=== PATIENT | female | born 1980 | race Caucasian/White ===

== ENCOUNTER 2017-03-17 08:52 | Emergency (ER) | payer BC, SELFPAY | END 2017-03-17 09:40 | disposition home or self-care (01) | PROVIDERS: Emergency Provider Nurse Practitioner; Visit Provider Nurse Practitioner | DX: J06.9 Acute upper respiratory infection, unspecified (principal) | CPT/HCPCS: 87804; 87880; 99201 ==

== ENCOUNTER 2020-05-24 09:56 | Emergency (ER) | payer BC, SELFPAY ==
[2020-05-24 10:14] VITALS: BP 120/82; PULSE 81; RESP 18; TEMP 36.6; O2SAT 99; BMI 31.6
--- NOTE | 2020-05-24 10:16 | HMH.EDUTC ---
[facility] Disposition Clinical Impression: Viral syndrome, Exposure to COVID-19 virus Disposition: Home, Self-Care Condition on Discharge: Good Instructions: DI for COVID-19 (Suspected or Confirmed ), Preventing the Spread of Coronavirus Discharge Instructions Additional Instructions: Drink plenty of fluids. Take tylenol for pain or fever. Return if you begin to have difficulty breathing. Follow up with your regular doctor. GO TO THE ER FOR ANY WORSENING SYMPTOMS Prescriptions: Ondansetron [Zofran 4mg ODT] 4 mg PO Q8HP PRN #12 tab.rapdis PRN Reason: Nausea Transmission Status: Received by [facility] Benzonatate [Tessalon Perle 100mg Cap] 100 mg PO TIDP PRN #30 cap PRN Reason: Cough Transmission Status: Received by [facility] Azithromycin [Z-Jorge 250mg Tab*] 250 mg PO UD DOSE PK #6 tab Transmission Status: Received by [facility] Referrals: Marina Gan [Primary Care Provider] - Forms: Work/School Release Time of Disposition: 10:25 Medical Decision Making - Medical Records Medical records reviewed: No: I reviewed the patient's medical records. - Tad Inquiry Pt receiving controlled substance: No Vital Signs: 05/24/20 10:14 05/24/20 10:26 Temperature 97.8 F 98 F Temperature Source Tympanic Pulse Rate 87 Pulse Rate [Right] 81 Respiratory Rate 18 16 Blood Pressure 122/84 Blood Pressure [Right Arm] 120/82 Blood Pressure Mean [Right Arm] 94 Blood Pressure Source [Right Arm] Automatic Cuff Blood Pressure Position [Right Arm] Sitting 02 Sat by Pulse Oximetry 99 Oxygen Delivery Method Room Air [facility] HPI - General Stated complaint: covid test Time Seen by Provider: 05/24/20 10:16 - History of Present Illness Provider Complaint: She is here to have a covid test done. Her son has covid. - Related Data Previous Rx's Medication Instructions Recorded Azithromycin [Z-Jorge 250mg Tab*] 250 mg PO UD DOSE PK #6 tab 05/24/20 Benzonatate [Tessalon Perle 100mg 100 mg PO TIDP PRN #30 cap 05/24/20 Cap] Ondansetron [Zofran 4mg ODT] 4 mg PO Q8HP PRN #12 tab.rapdis 05/24/20 Allergies Allergy/AdvReac Type Severity Reaction Status Date / Time Penicillins [PENICILLINS] Allergy Unknown Verified 05/24/20 10:00 sulfamethoxazole Allergy Unknown Verified 05/24/20 10:00 [From BACTRIM] trimethoprim [From BACTRIM] Allergy Unknown Verified 05/24/20 10:00 NOVACAINE Allergy Severe S-SWELLS-OR Uncoded 03/06/17 14:35 AL/THROAT From BACTRIM Allergy Intermediate I-ITCHING Uncoded 03/06/17 14:35 Penicillin Allergy Unknown Uncoded 03/06/17 14:35 [facility] History - Hepatitis A Screen Attestation statement:: This patient has been screened for Hepatitis A risk factors. I have reviewed the patient's past medical history: Yes ROS Obtained: Yes All systems reviewed & no additional complaints - Constitutional Constitutional: Reports system reviewed and no additional complaints, except as docu - Eyes Eyes: Reports system reviewed and no additional complaints, except as docu - ENT Ears, Nose, Mouth, and Throat: Reports system reviewed and no additional complaints, except as docu - Cardiovascular Cardiovascular: Reports system reviewed and no additional complaints, except as docu - Respiratory Respiratory: Reports system reviewed and no additional complaints, except as docu - Gastrointestinal Gastrointestingal: Reports: system reviewed and no additional complaints, except as docu Physical Exam - General General appearance: alert, in no apparent distress - Head Head exam: atraumatic, normocephalic, normal inspection - Eye Eye exam: Present: normal appearance, PERRL, EOMI - ENT ENT exam: Present: normal exam, normal oropharynx, mucous membranes moist, TM's normal bilaterally, normal external ear exam - Neck Neck exam: Present: normal inspection, full ROM, trachea midline. Absent: meningismus, lymphadenopathy - Chest
[2020-05-24 10:26] VITALS: BP 122/84; PULSE 87; RESP 16; TEMP 36.6
--- NOTE | 2020-05-24 13:45 | PC.NURSE ---
PT NOTIFIED OF POSITIVE COVID TEST RESULTS
== END 2020-05-24 10:29 | disposition home or self-care (01) ==
PROVIDERS: Emergency Provider Nurse Practitioner Family; PCP Nurse Practitioner Family
DX: U07.1 COVID-19 (principal); Z88.0 Allergy status to penicillin
CPT/HCPCS: 99202; G0463; U0003

== ENCOUNTER 2021-07-27 12:39 | Emergency (ER) | payer BC, SELFPAY ==
[2021-07-27 12:52] VITALS: BP 117/83; PULSE 67; RESP 18; TEMP 36.7; O2SAT 98; BMI 32.5
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
--- NOTE | 2021-07-27 13:12 | PC.NURSE ---
pt in radiology
[2021-07-27 14:34] VITALS: BP 123/73; PULSE 56; RESP 20; TEMP 36.8; O2SAT 100
== END 2021-07-27 14:35 | disposition home or self-care (01) ==
PROVIDERS: Emergency Provider Emergency Medicine; PCP Nurse Practitioner Family
DX: S39.012A Strain of muscle, fascia and tendon of lower back, initial encounter (principal); S13.4XXA Sprain of ligaments of cervical spine, initial encounter; V43.02XA Car driver injured in collision with other type car in nontraffic accident, initial encounter; Y92.414 Local residential or business street as the place of occurrence of the external cause
CPT/HCPCS: 70450; 72125; 72128; 72131; 99284

== ENCOUNTER 2022-02-05 08:31 | Emergency (ER) | payer BC, SELFPAY ==
[2022-02-05 08:43] VITALS: BP 114/77; PULSE 66; RESP 16; TEMP 36.8; O2SAT 98; BMI 32.1
--- NOTE | 2022-02-05 08:48 | EXP.UTC ---
Discharge Plan Disposition Patient Disposition: Home, Self-Care Condition: Good Prescriptions Prescriptions: New triamcinolone acetonide 0.025 % cream 1 applic topical DAILY PRN (Reason: itching) Qty: 15 2RF methylprednisolone 4 mg Tablets,Dose Pack 4 mg PO DIRECTED Qty: 21 0RF No Action azithromycin 250 MG tablet 250 mg PO UD DOSE PK Qty: 6 0RF Rx Instructions: Take two (2) tablets today, then one (1) tablet days #2 thru #5 benzonatate 100 MG capsule 100 mg PO TIDP PRN (Reason: Cough) Qty: 30 0RF ondansetron 4 MG tablet,disintegrating 4 mg PO Q8HP PRN (Reason: Nausea) Qty: 12 0RF methocarbamol 500 MG tablet 1,000 mg PO TID 10 Days Qty: 60 0RF ibuprofen 800 MG tablet 800 mg PO TIDP PRN (Reason: Moderate Pain) Qty: 20 0RF Referrals Follow up/Referrals: Marina Gan [Primary Care Provider] - See instructions Activity Restrictions/Add. Instructions Additional Instructions/Restrictions: Try to identify and avoid contact with the offending substance. Don't start the oral steroids until tomorrow. Don't put the topical steroids (triamcinolone) on your face or your groin. Follow up with your regular doctor. GO TO THE ER FOR ANY WORSENING SYMPTOMS OR CONCERNS Clinical Impressions Clinical Impression: Contact dermatitis Instructions Patient Instructions: DI for Contact Dermatitis, Triamcinolone Topical, Methylprednisolone Injection Discharge ED Provider: Onel Maldonado [facility] General Stated complaint: rash on body Mode of Arrival: Ambulatory Source of Information: Patient Limitations: No Limitations Time Seen by Provider: 02/05/22 08:48 Description of Symptoms (Recalled from Triage Doc. by RN): pt comes in with c/o rash on legs, arms, back, torso. symptoms began 3-4 days ago. pt states she has not recently changed any detergents or been any place different. HEENT Symptoms (Recalled from RN notes): No Resp Symptoms (Recalled from RN notes): No Skin Symptoms (Recalled from RN notes): Yes MS Symptoms (Recalled from RN notes): No Functional Status (Recalled from RN notes): n/a History of Present Illness Provider Complaint: She states that for the past 4 days she has had a rash on her body that is very itchy. She denies any known exposure to any allergens. Related Data Previous Rx's Medication Instructions Recorded azithromycin 250 mg tablet 250 mg PO UD DOSE PK #6 tabs 05/24/20 benzonatate 100 mg capsule 100 mg PO TIDP PRN Cough #30 caps 05/24/20 ondansetron 4 mg disintegrating 4 mg PO Q8HP PRN Nausea ##12 05/24/20 tablet ibuprofen 800 mg tablet 800 mg PO TIDP PRN Moderate Pain 07/27/21 #20 tabs methocarbamol 500 mg tablet 1,000 mg PO TID 10 days #60 tabs 07/27/21 methylprednisolone 4 mg tablets in 4 mg PO DIRECTED #21 tabs 02/05/22 a dose pack triamcinolone acetonide 0.025 % 1 applic topical DAILY PRN itching 02/05/22 topical cream #15 grams Allergies Allergy/AdvReac Type Severity Reaction Status Date / Time Penicillins [PENICILLINS] Allergy Unknown Verified 02/05/22 08:47 sulfamethoxazole Allergy Unknown Verified 02/05/22 08:47 [From BACTRIM] trimethoprim [From BACTRIM] Allergy Unknown Verified 02/05/22 08:47 NOVACAINE Allergy Severe S-SWELLS-OR Uncoded 03/06/17 14:35 AL/THROAT From BACTRIM Allergy Intermediate I-ITCHING Uncoded 03/06/17 14:35 Penicillin Allergy Unknown Uncoded 03/06/17 14:35 Worker's Comp Is this a Worker's Comp case?: No PFSH PFSH Social History Smoking Status: Never smoker alcohol intake: never current occupational status: employed Travel in the last 8 weeks: None ROS Obtained: Yes All systems reviewed & no additional complaints except as documented Constitutional Constitutional: Denies chills and Denies fever(s) Eyes Eyes: Denies eye discharge ENT Ears, Nose, Mouth, and Throat: Denies dizziness, Denies otalgia and Denies sore thr
[2022-02-05 09:57] VITALS: BP 114/77; PULSE 66; RESP 16; TEMP 36.8
== END 2022-02-05 10:01 | disposition home or self-care (01) ==
PROVIDERS: Emergency Provider Nurse Practitioner Family; PCP Nurse Practitioner Family
DX: L25.9 Unspecified contact dermatitis, unspecified cause (principal); R11.0 Nausea; R05.9 Cough, unspecified; Z79.1 Long term (current) use of non-steroidal anti-inflammatories (NSAID); Z79.52 Long term (current) use of systemic steroids; Z79.899 Other long term (current) drug therapy; Z88.0 Allergy status to penicillin; Z88.2 Allergy status to sulfonamides; Z88.4 Allergy status to anesthetic agent; Z88.8 Allergy status to other drugs, medicaments and biological substances
CPT/HCPCS: 96372; 99213; G0463

== ENCOUNTER 2022-08-15 09:36 | Emergency (ER) | payer BC, SELFPAY ==
[2022-08-15 09:37] VITALS: BP 143/71; PULSE 69; RESP 16; TEMP 36.7; O2SAT 100; BMI 32.5
--- NOTE | 2022-08-15 09:58 | EXP.UTC ---
Discharge Plan Disposition Patient Disposition: Home, Self-Care Condition: Good Prescriptions Prescriptions: New methylprednisolone 4 mg Tablets,Dose Pack 4 mg PO DIRECTED Qty: 21 0RF No Action azithromycin 250 MG tablet 250 mg PO UD DOSE PK Qty: 6 0RF Rx Instructions: Take two (2) tablets today, then one (1) tablet days #2 thru #5 benzonatate 100 MG capsule 100 mg PO TIDP PRN (Reason: Cough) Qty: 30 0RF ondansetron 4 MG tablet,disintegrating 4 mg PO Q8HP PRN (Reason: Nausea) Qty: 12 0RF triamcinolone acetonide 0.025 % cream 1 applic topical DAILY PRN (Reason: itching) Qty: 15 2RF methylprednisolone 4 mg Tablets,Dose Pack 4 mg PO DIRECTED Qty: 21 0RF methocarbamol 500 MG tablet 1,000 mg PO TID 10 Days Qty: 60 0RF ibuprofen 800 MG tablet 800 mg PO TIDP PRN (Reason: Moderate Pain) Qty: 20 0RF Referrals Follow up/Referrals: Marina Gan [Primary Care Provider] - See instructions Activity Restrictions/Add. Instructions Additional Instructions/Restrictions: Take the medications as directed. Follow up with your regular doctor. Follow up with your wad impregnator as discussed. GO TO THE ER FOR ANY WORSENING SYMPTOMS Don't start the oral steroids until tomorrow, since you had the shot here today. Clinical Impressions Clinical Impression: Allergic reaction Instructions Patient Instructions: DI for General Allergic Reactions Discharge ED Provider: Onel Maldonado [facility] HPI General Stated complaint: Possible reaction, sore throat, cough, itchy face Mode of Arrival: Ambulatory Source of Information: Patient Limitations: No Limitations Time Seen by Provider: 08/15/22 09:58 Description of Symptoms (Recalled from Triage Doc. by RN): pt presents to [facility] c/o lip swelling. pt states the s/s started at 2230 previous date but that she noticed around 0430 this morning. pt states at that time she took Benadryl. pt states she now has sore throat and cough that wasn't present at started. HEENT Symptoms (Recalled from RN notes): Yes Resp Symptoms (Recalled from RN notes): No Skin Symptoms (Recalled from RN notes): No MS Symptoms (Recalled from RN notes): No Functional Status (Recalled from RN notes): na History of Present Illness Provider Complaint: She states that for the past 1 day she has had swelling of her lips. She had these same symptoms about 3 weeks ago. She denies swelling of inside mouth or throat, but she is having throat discomfort and she is afraid her throat will swell. She denies any shortness of breath. Related Data Previous Rx's Medication Instructions Recorded azithromycin 250 mg tablet 250 mg PO UD DOSE PK #6 tabs 05/24/20 benzonatate 100 mg capsule 100 mg PO TIDP PRN Cough #30 caps 05/24/20 ondansetron 4 mg disintegrating 4 mg PO Q8HP PRN Nausea ##12 05/24/20 tablet ibuprofen 800 mg tablet 800 mg PO TIDP PRN Moderate Pain 07/27/21 #20 tabs methocarbamol 500 mg tablet 1,000 mg PO TID 10 days #60 tabs 07/27/21 methylprednisolone 4 mg tablets in 4 mg PO DIRECTED #21 tabs 02/05/22 a dose pack triamcinolone acetonide 0.025 % 1 applic topical DAILY PRN itching 02/05/22 topical cream #15 grams methylprednisolone 4 mg tablets in 4 mg PO DIRECTED #21 tabs 08/15/22 a dose pack Allergies Allergy/AdvReac Type Severity Reaction Status Date / Time Penicillins [PENICILLINS] Allergy Unknown Verified 02/05/22 08:47 sulfamethoxazole Allergy Unknown Verified 02/05/22 08:47 [From BACTRIM] trimethoprim [From BACTRIM] Allergy Unknown Verified 02/05/22 08:47 NOVACAINE Allergy Severe S-SWELLS-OR Uncoded 03/06/17 14:35 AL/THROAT From BACTRIM Allergy Intermediate I-ITCHING Uncoded 03/06/17 14:35 Penicillin Allergy Unknown Uncoded 03/06/17 14:35 Worker's Comp Is this a Worker's Comp case?: No Is this an H Worker's Comp?: No Is this a [place] Worker's Comp?: No [facility] Disclaimer: The information contained in this secti
[2022-08-15 10:16] VITALS: BP 143/71; PULSE 69; RESP 16; TEMP 36.7; O2SAT 100
== END 2022-08-15 10:18 | disposition home or self-care (01) ==
PROVIDERS: Emergency Provider Nurse Practitioner Family; PCP Nurse Practitioner Family
DX: T78.40XA Allergy, unspecified, initial encounter (principal); R22.0 Localized swelling, mass and lump, head
CPT/HCPCS: 96372; 99212; 99214; G0463

== ENCOUNTER 2023-03-31 10:04 | Emergency (ER) | payer BC, SELFPAY ==
[2023-03-31 10:15] VITALS: BP 120/81; PULSE 69; RESP 18; TEMP 36.8; O2SAT 98; BMI 31.6
--- NOTE | 2023-03-31 10:37 | ED_ITS ---
Discharge Plan Disposition Patient Disposition: Home, Self-Care Condition: Good Prescriptions Prescriptions: New promethazine-DM 6.25-15 mg/5 mL syrup 5 ml PO Q6H PRN (Reason: cough) Qty: 118 0RF No Action triamcinolone acetonide 0.025 % cream 1 applic topical DAILY PRN (Reason: itching) Qty: 15 2RF levothyroxine 100 mcg tablet 100 mcg PO DAILY Patient Comments: TAKE 1 TABLET BY MOUTH ONCE DAILY IN THE MORNING spironolactone 50 mg tablet 50 mg PO BID Patient Comments: TAKE 1 TABLET BY MOUTH TWICE DAILY Referrals Follow up/Referrals: Marina Gan [Primary Care Provider] - See instructions Activity Restrictions/Add. Instructions Additional Instructions/Restrictions: Take Blood pressure medication daily and check BP while taking cough medication. Clinical Impressions Clinical Impression: Acute upper respiratory infection Instructions Patient Instructions: DI for Viral Upper Respiratory Infection -- Adult Discharge ED Provider: Ranjana Brush [facility] General Stated complaint: presistant cough Mode of Arrival: Ambulatory Source of Information: Patient Limitations: No Limitations Time Seen by Provider: 03/31/23 10:37 Description of Symptoms (Recalled from Triage Doc. by RN): Pt's symptoms is coughing. HEENT Symptoms (Recalled from RN notes): Yes Resp Symptoms (Recalled from RN notes): No Skin Symptoms (Recalled from RN notes): No MS Symptoms (Recalled from RN notes): No Functional Status (Recalled from RN notes): n/a History of Present Illness Provider Complaint: Pt relates that she has been coughing and had some sinus congestion/drainage for the past 3 days. She states that she does not wish to be swabbed unless it will change her treatment plan as she plans to stay at home the next few days. She relates that she had a low grade temp of 99 last night and has not taken anything for her symptoms. Related Data Home Medications Medication Instructions Recorded Confirmed levothyroxine 100 mcg tablet 100 mcg PO DAILY 03/31/23 03/31/23 spironolactone 50 mg tablet 50 mg PO BID 03/31/23 03/31/23 Previous Rx's Medication Instructions Recorded triamcinolone acetonide 0.025 % 1 applic topical DAILY PRN itching 02/05/22 topical cream #15 grams promethazine-DM 6.25 mg-15 mg/5 mL 5 ml PO Q6H PRN cough #118 mL 03/31/23 oral syrup Allergies Allergy/AdvReac Type Severity Reaction Status Date / Time Penicillins [PENICILLINS] Allergy Unknown Verified 02/05/22 08:47 sulfamethoxazole Allergy Unknown Verified 02/05/22 08:47 [From BACTRIM] trimethoprim [From BACTRIM] Allergy Unknown Verified 02/05/22 08:47 NOVACAINE Allergy Severe S-SWELLS-OR Uncoded 03/06/17 14:35 AL/THROAT From BACTRIM Allergy Intermediate I-ITCHING Uncoded 03/06/17 14:35 Penicillin Allergy Unknown Uncoded 03/06/17 14:35 Worker's Comp Is this a Worker's Comp case?: No [facility] Disclaimer: The information contained in this section may have been updated after the patient was seen, as this information can be updated by other users. Social History Smoking Status: Never smoker alcohol intake: never current occupational status: employed Travel in the last 8 weeks: None ROS Obtained: Yes All systems reviewed & no additional complaints except as documented Constitutional Constitutional: Reports system reviewed and no additional complaints, except as documented and Reports malaise Eyes Eyes: Reports system reviewed and no additional complaints, except as documented ENT Ears, Nose, Mouth, and Throat: Reports system reviewed and no additional complaints, except as documented, Reports nasal congestion, Reports nasal discharge and Reports sinus pressure Cardiovascular Cardiovascular: Reports system reviewed and no additional complaints, except as documented Respiratory Respiratory: Reports system reviewed and no additional complaints, except as documented and Reports non-productive cough Gastrointestinal Gastrointestingal: Reports system reviewed and no additional complaints, except as documented Genitourinary Female Genitourinary: Reports system reviewed and no additional complaints, except as documented Musculoskeletal Musculoskeletal: Reports system reviewed and no additional complaints, except as documented Integumentary/Breasts Skin/Breast: Reports system reviewed and no additional complaints, except as documented Neurologic Neurologic: Reports system reviewed and no additional complaints, except as documented Endocrine Endocrine: Reports system reviewed and no additional complaints, except as documented Hematologic/Lymphatic Henatologic/Lymphatic: Reports system reviewed and no additional complaints, except as documented Allergic/Immunologic Allergic/Immunologic: Reports system reviewed and no additional complaints, except as documented Physical Exam General General appearance: alert Comment: ill appearing Head Head exam: atraumatic and normocephalic Eye Eye exam: Present normal appearance Expanded ENT Exam External ear exam: Present normal external inspection Nose exam: Absent sinus tenderness Nasal speculum exam: Bilateral: other (clear drainage) Mouth exam: Present normal external inspection Teeth exam: Present normal inspection Throat exam: Present normal inspection Neck Neck exam: Present normal inspection Chest Chest inspection: Present normal inspection and symmetric chest wall rise Respiratory Respiratory exam: Present normal lung sounds bilaterally Cardiovascular Cardiovascular exam: Present regular rate, normal rhythm and normal heart sounds Abdominal Exam Abdominal exam: Present soft and normal bowel sounds Extremities Exam Extremities exam: Present normal inspection Back Exam Back exam: Present normal inspection Neurological Exam Neurological exam: Present alert and oriented X3 Psychiatric Psychiatric exam: Present normal affect and normal mood Skin Skin exam: Present warm, dry and intact Lymphatic Lymphatic Findings: no adenopathy Medical Decision Making Tad Inquiry Pt receiving controlled substance: No Tad was queried for this patient: No Vital Signs: 03/31/23 10:15 Temperature 98.2 F Temperature Source Oral Pulse Rate [Right Radial] 69 Respiratory Rate 18 Blood Pressure [Right Arm] 120/81 Blood Pressure Mean [Right Arm] 94 Blood Pressure Source [Right Arm] Automatic Cuff Blood Pressure Position [Right Arm] Sitting 02 Sat by Pulse Oximetry 98 Oxygen Delivery Method Room Air
[2023-03-31 10:52] VITALS: BP 120/81; PULSE 69; RESP 18; TEMP 36.8; O2SAT 98
== END 2023-03-31 10:52 | disposition home or self-care (01) ==
PROVIDERS: Emergency Provider Nurse Practitioner Family; PCP Nurse Practitioner Family
DX: R05.9 Cough, unspecified (principal); J06.9 Acute upper respiratory infection, unspecified; R09.81 Nasal congestion; R53.81 Other malaise; B34.9 Viral infection, unspecified
CPT/HCPCS: 99212; 99214; G0463

== ENCOUNTER 2023-09-10 09:08 | Emergency (ER) | payer BC, SELFPAY ==
[2023-09-10 09:15] VITALS: BP 122/72; PULSE 63; RESP 18; TEMP 36.7; O2SAT 99; BMI 31.1
[2023-09-10 09:44] LABS: UTC Strep Screen (Rapid) Negative (Negative)
--- NOTE | 2023-09-10 10:01 | EXP.UTC ---
Discharge Plan Disposition Patient Disposition: Home, Self-Care Condition: Good Prescriptions Prescriptions: New hmnyihdorbxnwvh-ohfnjrrqy-QT [Bromfed DM] 2-30-10 mg/5 mL syrup 10 ml PO Q6H PRN (Reason: cold symptoms) Qty: 200 0RF No Action levothyroxine 100 mcg tablet 100 mcg PO DAILY Patient Comments: TAKE 1 TABLET BY MOUTH ONCE DAILY IN THE MORNING Referrals Follow up/Referrals: Marina Gan [Primary Care Provider] - See instructions Activity Restrictions/Add. Instructions Additional Instructions/Restrictions: URI * No sign of bacterial infection. Likely viral. Virus can take 7-14 days to run their course *Nasal saline and bulb syringe or nose leeanna to remove nasal drainage and help with nasal congestion. Hard to eat, drink, or sleep with nasal congestion so important to keep nose cleaned out. *Monitor Temp, Over the counter Motrin or Tylenol as directed/as needed Tylenol every 4 hours and Motrin every 6 hours (as long as your family doctor has told you that you can take it) for fever or pain. and straight to ER if unable to lower temp less than 101.0 after medication given *Warm salt water gargles may help to soothe the throat *Throat Lozenges? *Warm fluids like tea with honey may help to soothe the throat? *Sleep elevated *Humidifier/Vaporizer *Flonase 2 sprays in each nostril daily but be aware that it may take 2-3 days before you notice improvement *Bromfed may cause drowsiness. Know how it effects you (your child) before driving, caring for small child, or sending your child to school. Not other antihistamines/allergy medications while taking bromfed Your throat swab was sent for culture. Those results are typically sent to your primary care. Be sure to follow up in 2-3 days with your family doctor/primary care physician if no improvement so they can review those result and treat if necessary. If you don?t have a primary care doctor, I recommend you get one but in the mean time, you will have to return to a walk in clinic Follow up IMMEDIATELY for new or worsening symptoms or no Noticeable improvement over the next 48-72 hours. 911 for difficulty breathing or swallowing You were tested for today for COVID19 your test result should be back in the next 24-48 hours, you may call to the [facility] for results You was given a handout with instructions for Self Quarantine and Self isolation for while you wait on test results and what to do if they are positive Make sure to take your Vitamins Vit. C Vit D and Zinc if you can take them Clinical Impressions Clinical Impression: Acute upper respiratory infection Instructions Patient Instructions: DI for Viral Upper Respiratory Infection -- Adult Discharge ED Provider: Ranjana Brush [facility] [place] HPI General Stated complaint: sore throat, congestion, body aches Mode of Arrival: Ambulatory Source of Information: Patient Limitations: No Limitations Time Seen by Provider: 09/10/23 10:01 Description of Symptoms (Recalled from Triage Doc. by RN): Pt's symptoms are coughing, sore throat, body aches, and runny nose. HEENT Symptoms (Recalled from RN notes): Yes Resp Symptoms (Recalled from RN notes): No Skin Symptoms (Recalled from RN notes): No MS Symptoms (Recalled from RN notes): No Functional Status (Recalled from RN notes): n/a History of Present Illness Provider Complaint: Pt reports that she has a cough, runny nose, sore throat and body aches that started on Sunday. She reports taking Tylenol for her symptoms. Related Data Home Medications Medication Instructions Recorded Confirmed levothyroxine 100 mcg tablet 100 mcg PO DAILY 03/31/23 09/10/23 Previous Rx's Medication Instructions Recorded vydzpgsjgobsiko-vlwdreuonrhwzjc-RL 10 ml PO Q6H PRN cold symptoms 09/10/23 2 mg-30 mg-10 mg/5 mL oral syrup #200 mL (Bromfed DM) Allergies Allergy/AdvReac Type Severity Reaction Status Date / Time Penicillins [PENICILLINS] Allergy Unknown Verified 09/10/23 09:41 sulfamethoxazole Allergy Unknown Verified 09/10/23 09:41 [From BACTRIM] trimethoprim [From BACTRIM] Allergy Unknown Verified 09/10/23 09:41 NOVACAINE Allergy Severe S-SWELLS-OR Uncoded 03/06/17 14:35 AL/THROAT From BACTRIM Allergy Intermediate I-ITCHING Uncoded 03/06/17 14:35 Penicillin Allergy Unknown Uncoded 12/19/17 14:35 Worker's Comp Is this a Worker's Comp case?: No [facility] Disclaimer: The information contained in this section may have been updated after the patient was seen, as this information can be updated by other users. Social History Smoking Status: Never smoker alcohol intake: never current occupational status: employed Travel in the last 8 weeks: None ROS Obtained: Yes All systems reviewed & no additional complaints except as documented Constitutional Constitutional: Reports system reviewed and no additional complaints, except as documented, Reports body ache and Reports malaise Eyes Eyes: Reports system reviewed and no additional complaints, except as documented ENT Ears, Nose, Mouth, and Throat: Reports system reviewed and no additional complaints, except as documented, Reports nasal congestion, Reports nasal discharge, Reports odynophagia, Reports post nasal drip and Reports sore throat Cardiovascular Cardiovascular: Reports system reviewed and no additional complaints, except as documented Respiratory Respiratory: Reports system reviewed and no additional complaints, except as documented and Reports cough Gastrointestinal Gastrointestingal: Reports system reviewed and no additional complaints, except as documented and odynophagia Genitourinary Female Genitourinary: Reports system reviewed and no additional complaints, except as documented Musculoskeletal Musculoskeletal: Reports system reviewed and no additional complaints, except as documented Integumentary/Breasts Skin/Breast: Reports system reviewed and no additional complaints, except as documented Neurologic Neurologic: Reports system reviewed and no additional complaints, except as documented Endocrine Endocrine: Reports system reviewed and no additional complaints, except as documented Hematologic/Lymphatic Henatologic/Lymphatic: Reports system reviewed and no additional complaints, except as documented Allergic/Immunologic Allergic/Immunologic: Reports system reviewed and no additional complaints, except as documented Physical Exam General General appearance: alert Comment: ill appearing Head Head exam: atraumatic and normocephalic Eye Eye exam: Present normal appearance Expanded ENT Exam External ear exam: Present normal external inspection Nose exam: Absent sinus tenderness Nasal speculum exam: Bilateral: other (clear drainage noted) Mouth exam: Present normal external inspection Teeth exam: Present normal inspection Throat exam: Present tonsillar erythema Comment: large amount of post nasal drainage Neck Neck exam: Present normal inspection; Absent lymphadenopathy Chest Chest inspection: Present normal inspection and symmetric chest wall rise Respiratory Respiratory exam: Present normal lung sounds bilaterally Cardiovascular Cardiovascular exam: Present regular rate, normal rhythm and normal heart sounds Abdominal Exam Abdominal exam: Present soft and normal bowel sounds Extremities Exam Extremities exam: Present normal inspection Back Exam Back exam: Present normal inspection Neurological Exam Neurological exam: Present alert and oriented X3 Psychiatric Psychiatric exam: Present normal affect and normal mood Skin Skin exam: Present warm, dry and intact Lymphatic Lymphatic Findings: no adenopathy Medical Decision Making Tad Inquiry Pt receiving controlled substance: No Tad was queried for this patient: No Vital Signs: 09/10/23 09:15 Temperature 98.0 F Temperature Source Oral Pulse Rate [Right Radial] 63 Respiratory Rate 18 Blood Pressure [Right Arm] 122/72 Blood Pressure Mean [Right Arm] 88 Blood Pressure Source [Right Arm] Automatic Cuff Blood Pressure Position [Right Arm] Sitting 02 Sat by Pulse Oximetry 99 Oxygen Delivery Method Room Air Lab Data Lab results reviewed: Yes I reviewed the patient's lab results. Lab Results 09/10/23 09:37: Strep Scn Rapid Clinic Negative Orders (Tests/Meds): ORDERS Category Date Time Status Strep Screen Confirmation Stat Micro 09/10/23 09:37 Received
[2023-09-10 10:20] VITALS: BP 122/72; PULSE 63; RESP 18; TEMP 36.7; O2SAT 99
--- NOTE | 2023-09-10 10:20 | PC.NURSE ---
Sent up full panel to lab via tube system
[2023-09-10 10:25] LABS: Adenovirus,PCR Not Detected (NotDetected); Bordetella Pertussis Not Detected (NotDetected); Chlamydophila Pneumoniae, PCR Not Detected (NotDetected); Coronavirus 229E Not Detected (NotDetected); Coronavirus NL63 Not Detected (NotDetected); Coronavirus OC43 Not Detected (NotDetected); Coronovirus HKU1,PCR Not Detected (NotDetected); Human Metapneumovirus Not Detected (NotDetected); Influenza A, PCR Not Detected (NotDetected); Influenza AH1, 2009 Not Detected (NotDetected); Influenza AH1, PCR Not Detected (NotDetected); Influenza AH3,PCR Not Detected (NotDetected); Influenza B, PCR Not Detected (NotDetected); Mycoplasma Pneumoniae, PCR Not Detected (NotDetected); Parainfluenza 1, PCR Not Detected (NotDetected); Parainfluenza 2, PCR Not Detected (NotDetected); Parainfluenza 3, PCR Not Detected (NotDetected); Parainfluenza 4, PCR Not Detected (NotDetected); Respiratory Syncytial Virus Not Detected (NotDetected); Rhinovirus/Enterovirus Not Detected (NotDetected)
[2023-09-10 12:28] LABS: Coronavirus 19, PCR Detected (NotDetected)
== END 2023-09-10 10:20 | disposition home or self-care (01) ==
PROVIDERS: Emergency Provider Nurse Practitioner Family; PCP Nurse Practitioner Family
DX: U07.1 COVID-19 (principal); R05.9 Cough, unspecified; R07.0 Pain in throat; R09.81 Nasal congestion
CPT/HCPCS: 87581; 87632; 87635; 87798; 87880; 99212; 99214; G0463

== ENCOUNTER 2024-03-06 11:14 | Outpatient (CLI) | payer BC, SELFPAY ==
[2024-03-06 11:19] LABS: Microscopic, Urine URINE MICROSCOPIC (MICROSCOPIC)
[2024-03-06 12:10] LABS: Hemoglobin A1C 5.6 % (4.0-6.0)
[2024-03-06 12:13] LABS: Hemoglobin 12.8 g/dL (12.2-16.2); Mean Corpuscular HGB Conc 33.7 g/dL (31.8-35.4); Mean Platelet Volume 9.9 fl (7.4-10.4); Platelet Count 154 K/mm3 (142-424); Red Cell Distribution Width 12.2 % (11.5-17.5); White Blood Count 7.8 K/mm3 (4.8-10.8)
[2024-03-06 12:14] LABS: Neutrophils % 60.9 % (37.0-80.0)
[2024-03-06 12:16] LABS: Basophils % 0.3 % (0.1-2.0); Eosinophils # 0.2 K/mm3 (0.0-0.4); Eosinophils % 2.8 % (0.1-12.0); Lymphocytes # 2.1 K/mm3 (0.7-4.5); Lymphocytes % 27.3 % (10-50); Monocytes # 0.7 K/mm3 (0.1-1.0); Monocytes % 8.3 % (1.7-9.3); Neutrophils # 4.7 K/mm3 (1.8-7.8)
[2024-03-06 12:18] LABS: Albumin Level 4.1 g/dl (3.5-5.0)
[2024-03-06 12:19] LABS: Chloride 106 mmol/L (98-107); Potassium 4.1 mmoL/L (3.5-5.1); Sodium 133 mmol/L (136-145)
[2024-03-06 12:21] LABS: Alanine Aminotransferase 29 U/L (12-78); Albumin/Globulin Ratio 1.5 (1.1-1.8); Alkaline Phosphatase 82 U/L (38-126); Anion Gap 4.1 mEq/L (5-15); Aspartate Amino Transferase 28 U/L (14-36); Bilirubin,Total 0.7 mg/dl (0.2-1.3); Blood Urea Nitrogen 12 mg/dl (7-17); Carbon Dioxide 27 mmol/L (22.0-30.0); Estimated Glomerular Filt Rate 90 ml/min (>60); GFR (African American) 109 ML/MIN (>60); Globulin 2.8 g/dL (1.3-3.2); Iron 85 ug/dL (37-170); Total Protein,Serum 6.9 g/dl (6.3-8.2)
[2024-03-06 12:22] LABS: Calcium 8.9 mg/dl (8.4-10.2); Cholesterol 191 mg/dl (140-200); Glucose 90 mg/dl (74-100); HDL Cholesterol 38 mg/dl (40-60); Magnesium 1.8 mg/dl (1.6-2.3); Phosphorous 3.6 mg/dl (2.5-4.5); Triglycerides 118 mg/dl (30-150); VLDL Cholesterol 24 mg/dL (0-40)
[2024-03-06 12:29] LABS: C-Reactive Protein 8.9 mg/L (0-4)
[2024-03-06 12:32] LABS: Total Iron Binding Capacity 376 ug/dL (265-497)
[2024-03-06 12:33] LABS: Direct LDL Cholesterol 132.65 mg/dL (100-129)
[2024-03-06 12:39] LABS: Free T4 (Free Thyroxine) 0.64 ng/dl (0.78-2.19)
[2024-03-06 12:49] LABS: Appearance,Urine CLEAR (Clear); Bilirubin,Urine Negative (Negative); Blood, Urine Negative (Negative); Color,Urine YELLOW (Yellow); Glucose,Urine (UA) Negative (Negative); Ketones,Urine Negative (Negative); Leukocyte Esterase,Urine Negative (Negative); Nitrate,Urine Negative (Negative); PH,Urine 5.5 (5.0-8.5); Protein,Urine 1+ (Negative); Specific Gravity, Urine >= 1.030 (1.005-1.030); Urobilinogen,Urine 0.2 EU/dl (0.2)
[2024-03-06 12:53] LABS: Thyroid Stimulating Hormone 0.13 uIU/mL (0.465-4.68)
[2024-03-06 12:55] LABS: Erythrocyte Sedimentation Rate 53 mm/hr (0-20)
[2024-03-06 12:57] LABS: Ferritin 21.3 ng/ml (6.24-137); Intact Parathyroid Hormone 13.1 pg/mL (7.5-53.5)
[2024-03-06 13:04] LABS: HIV Combo NEGATIVE (Negative)
[2024-03-06 13:05] LABS: 25-OH Vitamin D, Total 25.5 ng/mL (30-100)
[2024-03-06 13:22] LABS: Bacteria,Urine Trace /lpf; Squamous Epithelial Cell,Urine Occasional #/hpf (0-5)
[2024-03-06 13:35] LABS: Vitamin B12 867 pg/mL (239-931)
[2024-03-06 17:54] LABS: Folate > 20.00 ng/mL
[2024-03-07 14:10] LABS: Calcium, Ionized 4.9 mg/dL (4.5-5.6)
[2024-03-08 06:23] LABS: HCV Ab Non Reactive (Non Reactive)
[2024-03-08 17:41] LABS: Deamidated Gliadin Abs, IgA 3 units (0-19); Deamidated Gliadin Abs, IgG 2 units (0-19); Tissue Transglutaminase IgA Ab <2 U/mL (0-3); Tissue Transglutaminase IgG Ab <2 U/mL (0-5)
[2024-03-10 12:08] LABS: Antinuclear Antibodies (ANA) Negative (Negative)
[2024-03-10 15:24] LABS: Cytoplasmic (C-ANCA) <1:20 titer (Neg:<1:20); Perinuclear (P-ANCA) <1:20 titer (Neg:<1:20)
[2024-03-10 16:14] LABS: Endomysial IgA Antibody Negative (Negative)
[2024-03-11 14:10] LABS: Saccharomyces cerevisiae, IgA <20.0 Units (0.0-24.9); Saccharomyces cerevisiae, IgG 42.4 Units (0.0-24.9)
[2024-03-12 09:57] LABS: Reticulin IgA Antibody Negative titer (Neg:<1:2.5)
== END 2024-03-06 23:59 | disposition home or self-care (01) ==
PROVIDERS: PCP Nurse Practitioner Family; Visit Provider Nurse Practitioner Family
DX: R63.5 Abnormal weight gain (principal); R10.9 Unspecified abdominal pain; K14.6 Glossodynia; R53.83 Other fatigue; E03.9 Hypothyroidism, unspecified; Z11.59 Encounter for screening for other viral diseases; Z11.4 Encounter for screening for human immunodeficiency virus [HIV]; L65.9 Nonscarring hair loss, unspecified; Z13.1 Encounter for screening for diabetes mellitus; I10 Essential (primary) hypertension; Z13.220 Encounter for screening for lipoid disorders; D64.9 Anemia, unspecified
CPT/HCPCS: 36415; 80050; 80053; 80061; 81001; 82306; 82330; 82607; 82728; 82746; 83036; 83516; 83540; 83550; 83735; 83970; 84100; 84156; 84439; 84443; 85025; 85651; 86036; 86038; 86140; 86225; 86235; 86255; 86256; 86671; 86803; 87086; 87088; 87186; 87389

== ENCOUNTER 2024-03-10 09:55 | Outpatient (CLI) | payer BC, SELFPAY ==
--- NOTE | 2024-03-10 09:56 | US_ITS ---
FINAL REPORT TECHNIQUE: Real-time grayscale and color ultrasound of the thyroid was performed. CLINICAL HISTORY: hypothyroid COMPARISON: None FINDINGS: Severely atrophic thyroid gland diffusely. The parenchyma is mildly heterogeneous. Ill-defined isoechoic nodule central right lobe measuring up to 8 mm compatible with TR 3 nodule. IMPRESSION: Findings compatible with chronic thyroiditis. Small benign-appearing nodule in the central right lobe. No additional follow-up needed per TI-RADS criteria Reviewed, Interpreted and Dictated by Erasmo Price MD Transcribed by Tiny Khan Authenticated and [facility]
== END 2024-03-10 23:59 | disposition home or self-care (01) ==
LOC: RAD 09:56
PROVIDERS: PCP Nurse Practitioner Family; Visit Provider Nurse Practitioner Family
DX: E03.9 Hypothyroidism, unspecified (principal)
CPT/HCPCS: 76536

== ENCOUNTER 2024-05-14 09:21 | Day surgery (SDC) | payer BC, SELFPAY ==
[2024-05-13 10:08] VITALS: BMI 34.5
[2024-05-14 09:58] VITALS: BP 116/78; PULSE 63; RESP 18; TEMP 36.4; O2SAT 99
[2024-05-14 10:05] LABS: Urine Pregnancy, HCG Qual. Negative (Negative)
[2024-05-14] MEDS: LACTATED RINGERS 1000ML 1,000 ML 50 ML IV (10:06)
--- NOTE | 2024-05-14 10:12 | P.PNANES_ITS ---
[facility] Disclaimer: The information contained in this section may have been updated after the patient was seen, as this information can be updated by other users. Medical History Viral syndrome Exposure to COVID-19 virus Strain of lumbar region Acute whiplash injury Contact dermatitis Allergic reaction Acute upper respiratory infection Hypothyroid Mini stroke Hypertension Surgical History H/O: Family History Other Family history of TIAs Family history of diabetes mellitus type II Family history of hypertension Family history of stroke Social History (Updated 05/14/24 @ 10:03 by Marjorie Lopes RN) Smoking Status: Never smoker alcohol intake: current alcohol intake frequency: holidays/special occasions only substance use type: denies use current occupational status: employed Travel in the last 8 weeks: None caffeine: Yes Have you lived/traveled outside [place] in past 30 days?: No Contact w/someone who lives/traveled outside [place] past 30 days?: No Exposure to someone with infectious disease in past 14 days?: No Do you have a fever (greater than 100.4 F or 38 C)?: No Have you tested positive for COVID-19: Yes Exposed to someone with COVID-19 in past 14 days?: No Do you have a sore throat?: No Do you have a cough?: No Do you have any weakness?: No Are you experiencing any nausea/vomitting?: No Do you have any diarrhea?: No Are you experiencing any unusual bleeding?: No Do you have any muscle aches/pain?: No Do you have any abdominal pain?: No Are you experiencing loss of taste or smell?: No [facility] Anesthesia Checklist Patient Identification Patient Identification: Arm Band Structural Data Admitted From: Home Planned Operative Procedure/s: Right Foot Soft Tissue Mass Removal Consent for Planned Operative Procedure(s) Verified: Yes Verified Documents: Surgical Consent and History and Physical NPO Status Verified Time NPO: 00:00 Additional verifications Anesthesia Reactions: No Airway Assessment Mallampati Score:: Class II C-Spine Mobility Assessed: Yes TMJ Mobility Assessed: Yes Dentition: Good Dentition Neurological Assessment Level of Consciousness: Awake, Alert and Appropriate Anesthesia Plan Anesthesia Risk discussed: Yes Anesthesia Plan: Verified ASA Class: II Anesthesia Type: MAC
--- NOTE | 2024-05-14 10:27 | EXP.HP ---
History of Present Illness *Admission Date: 05/14/24 *Reason for visit:: Elevated ASCA IgG antibody, iron deficiency and bowel irregularity *History of present illness: Mrs. Eugene is a 43-year-old female who is here for diagnostic evaluation because of her bowel irregularity, bloating and gassiness. She recently had lab work showing an elevated CRP of 8.9 and an elevated ESR 53. Her ASCA IgG antibody was elevated. The patient's recent iron levels were normal with serum iron 85, TIBC 376, iron saturation 22.6 and ferritin 21.3. However, she has been on an iron supplement and has had some longstanding iron deficiency. The patient does report bowel movements that are loose to firm with bowel irregularity. She reports moderate gassiness and bloating. She reports no blood or mucus with her bowel movements but has noted mucus in the past. She reports no abdominal pain or crampy discomfort. She does have a history of heartburn and reflux with most foods and some belching. She reports no weight loss or family history of IBD, Crohn's or colon cancer. She has never had a colonoscopy or endoscopy. She is here for further evaluation. The patient's celiac testing was negative. She had a negative P ANCA. Her hemoglobin and hematocrit were normal at 12.8 and 38.0 on 03/06. Her MCH was slightly elevated at 32.0 and her RBC was slightly low at 4.00. She had mild vitamin D insufficiency (25 OH vitamin D 25.5). She does have hypothyroidism and is on levothyroxine. [facility] Disclaimer: The information contained in this section may have been updated after the patient was seen, as this information can be updated by other users. Medical History Viral syndrome Exposure to COVID-19 virus Strain of lumbar region Acute whiplash injury Contact dermatitis Allergic reaction Acute upper respiratory infection Hypothyroid Mini stroke Hypertension Surgical History H/O: Family History Other Family history of TIAs Family history of diabetes mellitus type II Family history of hypertension Family history of stroke Social History (Updated 05/14/24 @ 10:03 by Marjorie Lopes RN) Smoking Status: Never smoker alcohol intake: current alcohol intake frequency: holidays/special occasions only substance use type: denies use current occupational status: employed Travel in the last 8 weeks: None caffeine: Yes Have you lived/traveled outside US in past 30 days?: No Contact w/someone who lives/traveled outside US past 30 days?: No Exposure to someone with infectious disease in past 14 days?: No Do you have a fever (greater than 100.4 F or 38 C)?: No Have you tested positive for COVID-19: Yes Exposed to someone with COVID-19 in past 14 days?: No Do you have a sore throat?: No Do you have a cough?: No Do you have any weakness?: No Are you experiencing any nausea/vomitting?: No Do you have any diarrhea?: No Are you experiencing any unusual bleeding?: No Do you have any muscle aches/pain?: No Do you have any abdominal pain?: No Are you experiencing loss of taste or smell?: No Other Medical History Have you received the Flu Vaccine for this season: No Have you received the Pneumonia Vaccine: No Review of Systems Review of Systems Review of systems (narrative): Negative *Cardiovascular Comments: Negative *Gastrointestinal Comments: Negative *Genitourinary Comments: Negative *Musculoskeletal Comments: Negative *Neurologic Comments: Negative Meds Home Medications and Allergies Home Medications ?Medication ?Instructions ?Recorded ?Confirmed ?Type losartan 25 mg tablet 25 mg PO DAILY 03/03/24 05/14/24 History cholecalciferol (vitamin D3) 50 50 mcg PO DAILY #30 caps 03/06/24 05/14/24 Rx mcg (2,000 unit) capsule ferrous sulfate 325 mg (65 mg 325 mg PO DAILY #90 tabs 03/07/24 05/14/24 Rx iron) tablet sodium sul 1.479 gram-potas ch See Rx Instructions PO PER PKG DIR 05/05/24 05/14/24 Rx 0.188 gram-magnes sul 0.225 gram colonscopy #24 tabs tablet (Sutab) levothyroxine 88 mcg capsule 100 mcg PO DAILY 05/13/24 05/14/24 History New Prescriptions to Start Prescriptions: Allergies Allergy/AdvReac Type Severity Reaction Status Date / Time gluten Allergy Severe swelling Verified 05/14/24 09:55 Penicillins (PENICILLINS) Allergy Unknown Unknown Verified 05/14/24 09:55 allergy reaction NOVACAINE Allergy Severe S-SWELLS-OR Uncoded 03/26/24 09:22 AL/THROAT From BACTRIM Allergy Intermediate I-ITCHING Uncoded 03/26/24 09:22 Exam Data for Last 24 hours Vital signs and Labs for Last 24 Hours: Temp Pulse Resp BP Pulse Ox O2 Del Method 97.6 F 63 18 116/78 99 Room Air 05/14/24 09:58 05/14/24 09:58 05/14/24 09:58 05/14/24 09:58 05/14/24 09:58 05/14/24 09:58 Laboratory Results - last 24 hr 05/14/24 09:50: Urine HCG, Qual Negative I & O for Last 24 hours: Intake & Output 05/11/24 05/12/24 05/13/24 05/14/24 23:59 23:59 23:59 23:59 Weight 189 lb *Routine HEENT Exam Head: Present normocephalic Eye: Present EOMI and PERRL ENT: Present mucous membranes moist *Routine Neck Exam Neck: Present supple *Routine Respiratory Exam Respiratory: Present CTA bilaterally *Routine Cardiovascular Exam Cardiovascular: Present RRR *Routine Abdominal Exam Abdominal: Present soft and normoactive bowel sounds; Absent tenderness *Routine Rectal Exam Rectal:: deferred *Routine Genitalia Exam Genitalia:: deferred *Routine Extremities Exam Extremities: Absent cyanosis, clubbing or edema *Routine Skin Exam Skin: Present warm; Absent rash *Routine Neurological Exam Neurological: Present alert and oriented X3 Assessment and Plan *Assessment and plan (1) Elevated Saccharomyces cerevisiae antibody level: Status: Acute Category: Medical Code(s): R76.8 - Other specified abnormal immunological findings in serum (2) Elevated C-reactive protein (CRP): Status: Acute Category: Medical Code(s): R79.82 - Elevated C-reactive protein (CRP) (3) Elevated erythrocyte sedimentation rate: Status: Acute Category: Medical Code(s): R70.0 - Elevated erythrocyte sedimentation rate (4) History of iron deficiency: Status: Acute Category: Medical Code(s): Z86.39 - Personal history of other endocrine, nutritional and metabolic disease (5) Irregular bowel habits: Status: Acute Category: Medical Code(s): R19.8 - Other specified symptoms and signs involving the digestive system and abdomen (6) Bloating: Status: Acute Category: Medical Code(s): R14.0 - Abdominal distension (gaseous) Plan A/P: 1. Elevated ASCA IgG antibody with elevated CRP, sed rate and iron deficiency with irregular bowel function is the preprocedural diagnosis. The patient will be anesthetized/sedated using MAC sedation. The patient has been seen and examined. Cardiac and lung assessment prior to the examination is stable. Proceed with planned diagnostic colonoscopy to rule out Crohn's disease
--- NOTE | 2024-05-14 10:29 | P.PCN_ITS ---
[facility] Procedure Note Date: 05/14/24 Time: 10:54 Procedure Note:: Colonoscopy Procedure Report: Colonoscopy with cold biopsies Endoscopist: Haseeb Calvo II, MD Referring physician: DANILO Granados Date of Procedure: May 14, 2024 Equipment: Olympus 190 variable stiffness pediatric colonoscope Sedation: MAC sedation Indication: Mrs. Eugene is a 43-year-old female who is here for diagnostic colonoscopy. She has had bowel irregularity, bloating and gassiness. She recently had lab work showing an elevated CRP of 8.9 and an elevated ESR 53. Her ASCA IgG antibody was elevated. The patient's recent iron levels were normal with serum iron 85, TIBC 376, iron saturation 22.6 and ferritin 21.3. However, she has been on an iron supplement and has had some longstanding iron deficiency. The patient does report bowel movements that are loose to firm with bowel irregularity. She reports moderate gassiness and bloating. She reports no blood or mucus with her bowel movements but has noted mucus in the past. She reports no abdominal pain or crampy discomfort. She does have a history of heartburn and reflux with most foods and some belching. She reports no weight loss or family history of IBD, Crohn's or colon cancer. She has never had a colonoscopy or endoscopy. She is here for further evaluation. The patient's celiac testing was negative. She had a negative P ANCA. Her hemoglobin and hematocrit were normal at 12.8 and 38.0 on 03/06. Her MCH was slightly elevated at 32.0 and her RBC was slightly low at 4.00. She had mild vitamin D insufficiency (25 OH vitamin D 25.5). She does have hypothyroidism and is on levothyroxine. Procedure: Prior to the procedure, a history and physical exam was performed, and patient's medications and allergies were reviewed. The risks, benefits and alternatives of the sedation and procedure were discussed with the patient. All questions were answered and informed consent was obtained. The patient was brought to the procedure room. Patient identification and proposed procedure were verified by the physician and the nurse. The patient was placed in a left lateral decubitus position and the scope was passed under direct vision. Throughout the procedure, the patient's blood pressure, pulse, and oxygen saturations were monitored continuously. The colonoscopy was accomplished without difficulty. The patient tolerated the procedure well. Findings: On digital rectal examination there was normal rectal tone. There were no external hemorrhoids. The colonoscope was introduced through the anal canal to the rectum and advanced to the cecum. The ileocecal valve and appendiceal orifice were identified. The scope was advanced a short distance into the ileum which appeared grossly normal. The scope was then withdrawn into the colon. The cecum, ascending, transverse, descending, sigmoid and rectum were grossly normal. There were no mucosal abnormalities identified. Random biopsies were taken from the right colon to rule out microscopic colitis. Upon retroflexion within the rectum there were grade 1-2 internal hemorrhoids. The preparation was excellent throughout with Waldo Preparation Score of 9. The cecal time was 12 minutes. Impression: 1. Normal colonoscopy with intubation of the terminal ileum 2. Grade 1-2 internal hemorrhoids Plan: Based upon her elevated ASCA IgG antibody, elevated CRP and ESR, I did feel that Crohn's was a likely etiology but the patient clearly does not have Crohn's disease. There is a fairly high false positive rate of inflammatory bowel disease serologic markers (i.e ASCA IgG and IgA and pANCA) for Crohn's disease and ulcerative colitis. These autoantibody markers of IBD are frequently present in patients without Crohn's disease or ulcerative colitis, including patients with IBS and asymptomatic controls. A colonoscopy test is the most valid way to confirm or rule out IBD and her colonoscopy showed clearly no evidence of IBD or Crohn's disease. I will follow-up the biopsies. I would encourage psyllium fiber supplementation on a long-term daily maintenance basis. I would consider doing enzyme testing. It is important to test for enzyme deficiencies in persons that suffer from gassiness, bloating, abdominal discomfort and bowel irregularity. This includes persons that have previously been diagnosed with IBS (which is a diagnosis of exclusion). The 2 most common digestive enzyme deficiencies are CSID (sucrase isomaltase deficiency where you don't have enough sucrase to digest certain sugars) and exocrine pancreatic insufficiency (EPI) when your pancreas doesn't produce enough of the enzymes necessary to digest carbohydrates, proteins and fats. The testing for these common enzyme deficiencies is simple and noninvasive. For CSID, this involves doing the C-13 sucrose breath test. In the past, the gold standard for diagnosis of CSID was taking biopsies of the middle intestine (jejunum or lower duodenum) with a special enzyme assay that is costly and only performed in a few regional centers (none in the [facility]). The breath test is certainly less invasive and less complex as well as being accurate. It is the favored form of diagnostic test for CSID presently. The accurate test for EPI (exocrine pancreatic insufficiency) is the stool/fecal elastase test and which a stool sample is checked for the pancreatic digestive enzymes trypsin and elastase which should normally be present.
[2024-05-14 10:33] VITALS: O2SAT 99
[2024-05-14 10:55] VITALS: BP 89/61; PULSE 73; RESP 14; TEMP 36.4; O2SAT 97
[2024-05-14 11:05] VITALS: BP 133/73; PULSE 67; RESP 16; O2SAT 97
[2024-05-14 11:15] VITALS: BP 142/66; PULSE 53; RESP 16; O2SAT 99
[2024-05-14 11:25] VITALS: BP 135/70; PULSE 68; RESP 16; O2SAT 96
== END 2024-05-14 10:25 | disposition home or self-care (01) ==
PROVIDERS: PCP Nurse Practitioner Family; Visit Provider Internal Medicine Gastroenterology
PROC: 0DJD8ZZ Inspection of Lower Intestinal Tract, Via Natural or Artificial Opening Endoscopic (ICD-10-PCS; CPT 45378; principal; 2024-05-14 11:00)
DX: R76.8 Other specified abnormal immunological findings in serum (principal); R79.82 Elevated C-reactive protein (CRP); R70.0 Elevated erythrocyte sedimentation rate; Z86.39 Personal history of other endocrine, nutritional and metabolic disease; R19.8 Other specified symptoms and signs involving the digestive system and abdomen; R14.0 Abdominal distension (gaseous); D50.9 Iron deficiency anemia, unspecified; K64.8 Other hemorrhoids
CPT/HCPCS: 45380; 81025; J7120

== ENCOUNTER 2024-05-15 08:42 | Outpatient (CLI) | payer BC, SELFPAY ==
[2024-05-19 02:08] LABS: Pancreatic Elastase, Fecal >800 (>200)
== END 2024-05-15 23:59 | disposition home or self-care (01) ==
PROVIDERS: PCP Nurse Practitioner Family; Visit Provider Internal Medicine Gastroenterology
DX: R19.8 Other specified symptoms and signs involving the digestive system and abdomen (principal); R14.0 Abdominal distension (gaseous)
CPT/HCPCS: 82656

== ENCOUNTER 2024-08-04 08:13 | Outpatient (CLI) | payer BC, SELFPAY ==
--- OUTSIDE RECORDS SUMMARY | 2024-08-04 08:15 | XMS_ITS | Data Portability ---
Author Organization DAWSON bullard MD, Main Office Address [address] [place] [address] Care Team Providers Care Welding Foreman Name Role Phone JEAN CARLOS SCHUSTER Primary Care Provider JEAN CARLOS SCHUSTER Referring Provider [phone] Assessment No assessment recorded. Plan of Treatment Reminders Order Date Submit Date Provider Last Modified By Organization Details Last Modified Time Details Appointments None recorded. Lab None recorded. Referral None recorded. Procedures None recorded. Surgeries None recorded. Imaging MRI, brain, w/o contrast 2022 023 [facility], [address], [place], [address], 07:23:24 Medication Orders None recorded. Patient TargetsNo targets recorded. Patient Instructions Encounter Date Encounter Id Patient Instructions Last Modified By Organization Details Last Modified Time 09/21/2022 [id number] Finding has been discussed with the patient and her in detail. Brain MRI scan without contrast. Continue 1 aspirin a day. Repeat lipid profile in one month. She might need lipid-lowering agent. Monitor blood pressure closely. We discussed hypoglycemia and diet. Return as needed. She was instructed to go to the emergency room should she develop focal neurologic symptoms. [email or web address] Not available 09/21/2022 10:17:13 Reason for Referral None Reported. Procedures Surgical History Date Name Laterality Status Provider Name and Address Organization Details Recorded Time section completed Cristal Kelley MD 09/21/2022 09:21:01 Imaging Results None recorded. Procedure Notes None recorded. Medical Equipment None Reported. Allergies Allergen ID Allergen Name Allergen Category Reaction Reaction Severity Criticality Documentation Date Start Date Code Code System Note Provider Name and Address Organization Details Recorded Time 7526 Bactrim medicatio n Not available Not available Not available 09/21/2022 84618 9 RxNorm DAWSON Robles MD 3 09:17:35 7527 Product containin g penicilli n (product) medicatio n Not available Not available Not available 09/21/2022 55333 8001 SNOMED DAWSON Robles MD 3 09:17:44 7528 procaine hydrochlo ride medicatio n Not available Not available Not available 09/21/2022 16726 8 RxNorm DAWSON Robles MD 3 09:18:19 Medications Name Sig Start Date Stop Date Status Note LastModified by Organization Details LastModified Time levothyroxi ne 100 mcg tablet TAKE 1 TABLET BY MOUTH ONCE DAILY IN THE MORNING active Not Available Not Available No t Available triamcinolo ne acetonide 0.025 % topical cream APPLY TOPICALLY NEEDED DAILY FOR ITCHING 09/21 completed Not Available Not Available Not Available epinephrine 0.3 mg/0.3 mL injection, auto-inject or INJECT 1 PEN INJECTOR INTRAMUSC ULARLY DIRECTED NEEDED INJECT INTO OUTER THIGH FOR SEVERE ALLERGIC REATION. CALL 911 AFTER USE 09/21 completed Not Available Not Available Not Available methylpredn isolone 4 mg tablets in a dose pack TAKE BY MOUTH DIRECTED ON INSIDE OF PACKAGE 09/21 completed Not Available Not Available Not Available spironolact one 50 mg tablet TAKE 1 TABLET BY MOUTH TWICE DAILY 09/21 completed Not Available Not Available Not Available Sprintec (28) 0.25 mg-0.035 mg tablet TAKE 1 TABLET BY MOUTH ONCE DAILY 09/21 completed Not Available Not Available Not Available Vitals Date Recorded Body height Body mass index (BMI) Body weight Heart rate Respiratory rate Systolic blood pressure Diastolic blood pressure Provider Name and Address Organization Details Last Updated DateTime 3 157.48 cm 32.4 kg/m2 40552.8 5 g 77 /min 17 /min 127 mm[Hg] 78 mm[Hg] Ant Kelley MD [address], [place], [address], [place] Blair Kelley MD 10:12:51 Social History Question Answer Notes LastModified by Organizat ion Details LastModified Time Tobacco Smoking Status Never Smoker Cristal Brown DAWSON dooley MD 09/21/2022 09:20:49 What Was The Date Of Your Most Recent Tobacco Screening? 09/21/2022 Information not available 09/21/2022 Sex: Unknown Functional Status Question Answer Note LastModified by Organization D etails LastModified Time What is your level of alcohol consumption? None Information not available 09/21/2022 Are you able to walk? YESWOREST Information not available 09/21/2022 Mental Status None recorded. Family History Relationship Description Onset Age of this Age Resolved Age Notes LastModified by Organization Details LastModified Time Brother Alcoholism Not availab le 09/21/2022 09:19:41 Mother Family history of malignant neoplasm Not available 2022 09:19:52 Mother Hypertensive disorder Not available 2022 09:20:23 Maternal Grandmother Dementia Not available 09/21 09:20:01 Maternal Grandfather Diabetes mellitus Not available 2022 09:20:09 Maternal Grandfather Heart disease Not available 2022 09:20:16 Maternal Grandfather Cerebrovascu lar accident Not available 08/2022 09:20:35 Medical History Condition Response Hyperlipidemia Y Hypertension Y Gynecological HistoryNo gynecological history recorded. Obstetrics History GPAL:G 0 P 0 0 0 0 Past Encounters Encounter ID Performer Location Encounter Start Date Encounter Closed Date Diagnosis/Indication Diagnosis SNOMED-CT Code Diagnosis ICD10 Code Diagnosis Note [id number] Ant Kelley MD Main Office [address] [place] [address] 09/21/2022 09:03:51 09/21/2022 09:59:25 Disturbance in speech 29446656 R47.9 The patient is a 42-year-ol d white female. She had a episode of transient speech disturbanc e. She was hypoglycem ic. This could be related to hypoglycem ia. She has hyperlipid emia as a risk factor for stroke. She is currently taking 1 aspirin a day. Health Concerns Section Related Observation LastModified by Organization Detai ls LastModified Time None Recorded Concern Status LastModified by Organization Details LastModified Time None Recorded Advance Directives Directive None Recorded Payers Encounter Date Sequence Insurance Name Policy Number Policy Rodgers Covered Member ID Rodgers Member ID Guarantor Name 09/21/2022 1 [place] [employer] [place] [id number] Jhoana Eugene [id number] Jhoana Eugene Notes Date Note Type Note Provider Name and Address Organization Details Recorded Time 09/21/2022 text/html Jhoana is a 42-year-old white female. She is an accounts payable accountant. She is accompanied by her Kush for consultation of a transient episode of speech disturbance on September 06 while she was at work. She was feeling fatigued and tired and she cannot open her eyes. She developed word finding difficulty. She was hypoglycemic. She was taken to the emergency room. She had negative CT scan of the brain and CT angiogram of the head and neck. Her cholesterol is elevated at 220 with a high LDL. She is a non smoker. She denies hypertension or diabetes. She has been watching what she eats. Her blood glucose has been running low. She has been exercising twice a day. She has been experiencing weight loss because of that. She is on Synthroid. She also took spironolactone the past. She is currently taking 1 aspirin a day. Ant Kelley MD [address] [facility] [facility] [address], [place], [address], [facility] - Ant Kelley MD 09/21/2022 10:17:42 OBGyn Episode No OBEpisode recorded.
--- NOTE | 2024-08-04 08:30 | MM_ITS ---
PROCEDURE INFORMATION: Exam: MG Bilateral Screening 3D Mammography Exam date and time: 08/04/2024 8:30 AM Age: 44 years old Clinical indication: Screening mammogram TECHNIQUE: Imaging protocol: Bilateral Screening tomosynthesis and 2D mammography including computer-aided detection (CAD) when performed. COMPARISON: 1. MG ABE DIAG MAMMO W/CAD LT 08/01/2023 7:55 AM 2. MG ABE SCRN MAMMO W/CAD BILAT 07/02/2023 1:11 PM 3. MG ABE DIAG MAMMO W/CAD RT 09/09/2018 2:02 PM 4. MG ABE SCRN MAMMO W/CAD BILAT 09/04/2018 8:27 AM FINDINGS: MAMMOGRAPHY: Breast composition: There are scattered areas of fibroglandular density. No new mass, architectural distortion, or suspicious cluster of calcifications has developed to suggest malignancy. No axillary adenopathy. IMPRESSION: No mammographic evidence of malignancy. Annual screening is recommended unless otherwise clinically indicated. ASSESSMENT: BI-RADS 1, Negative.
== END 2024-08-04 23:59 | disposition home or self-care (01) ==
LOC: RAD 08:13
PROVIDERS: PCP Nurse Practitioner Family; Visit Provider Nurse Practitioner Family
DX: Z12.31 Encounter for screening mammogram for malignant neoplasm of breast (principal)
CPT/HCPCS: 77063; 77067

== ENCOUNTER 2024-11-14 08:41 | Outpatient (CLI) | payer BC, SELFPAY ==
[2024-11-14 14:12] LABS: Hematocrit 39.4 % (37.0-47.0); Hemoglobin 13.5 g/dL (12.2-16.2); Immature Granulocytes % 0.3 %; Mean Corpuscular HGB Conc 34.3 g/dL (31.8-35.4); Mean Corpuscular Hemoglobin 32.5 pg (27.0-31.2); Mean Corpuscular Volume 94.7 fl (81-99); Nucleated Red Blood Cells % 0 %; Platelet Count 171 K/mm3 (142-424); Red Blood Count 4.16 M/mm3 (4.20-5.40); Red Cell Distribution Width-SD 41.2 fL; White Blood Count 6.6 K/mm3 (4.8-10.8)
[2024-11-14 14:29] LABS: Albumin Level 4.4 g/dl (3.5-5.0); Chloride 102 mmol/L (98-107); Potassium 4.4 mmoL/L (3.5-5.1); Sodium 136 mmol/L (136-145)
[2024-11-14 14:32] LABS: Alanine Aminotransferase 38 U/L (12-78); Albumin/Globulin Ratio 1.5 (1.1-1.8); Alkaline Phosphatase 84 U/L (38-126); Anion Gap 12.4 mEq/L (5-15); Aspartate Amino Transferase 34 U/L (14-36); Bilirubin,Total 1.0 mg/dl (0.2-1.3); Blood Urea Nitrogen 11 mg/dl (7-17); Calcium 9.7 mg/dl (8.4-10.2); Carbon Dioxide 26 mmol/L (22.0-30.0); Cholesterol 223 mg/dl (140-200); Creatinine,Serum 0.70 mg/dl (0.52-1.04); Estimated Glomerular Filt Rate 90 ml/min (>60); GFR (African American) 109 ML/MIN (>60); Globulin 3.0 g/dL (1.3-3.2); Glucose 97 mg/dl (74-100); Total Protein,Serum 7.4 g/dl (6.3-8.2); Triglycerides 164 mg/dl (30-150)
[2024-11-14 14:33] LABS: HDL Cholesterol 38 mg/dl (40-60)
[2024-11-14 14:50] LABS: Free T4 (Free Thyroxine) 0.79 ng/dl (0.78-2.19)
[2024-11-14 14:52] LABS: 25-OH Vitamin D, Total 21.5 ng/mL (30-100)
[2024-11-14 14:54] LABS: Hemoglobin A1C 5.9 % (4.0-6.0)
[2024-11-14 15:04] LABS: Thyroid Stimulating Hormone 5.72 uIU/mL (0.465-4.68)
[2024-11-14 15:23] LABS: Vitamin B12 684 pg/mL (239-931)
--- OUTSIDE RECORDS SUMMARY | 2024-11-17 08:43 | XMS_ITS | Clinical Summary ---
[facility] [address] [place] [address] Care Team Providers Care Hospital Receiving Clerk Name Role Phone Marina Gan APRN Primary Care Provider Allergies Active Allergy Reactions Criticality Noted Date Comments Sulfamethoxazole-Trimethoprim Itching Medium 2019 Penicillins Unknown - Low Severity Low 12/31/2019 Medications Euthyrox 88 MCG tablet 12/12/2019 Active spironolactone (ALDACTONE) 50 MG tablet 12/20/2019 Active Active Problems Problem Noted Date Diagnosed Date Hypothyroidism (acquired) 12/31/2019 Family History Medical History Relation Name Comments Arthritis Other family hx Diabetes Other family hx Heart disease Other family hx Hypertension Other family hx Thyroid disease Other family hx Breast cancer Neg Hx Ovarian cancer Neg Hx Relation Name Status Comments Other family hx Social History Tobacco Use Types Packs/Day Years Used Date Smoking Tobacco: Never Smokeless Tobacco: Never Alcohol Use Standard Drinks/Week Comments Never 0 (1 standard drink = 0.6 oz pur e alcohol) denies use AUDIT-C Answer Date Recorded Q1: How often do you have a drink containing alc ohol? Never 12/14/2019 Average Number of Drinks Not on file 020 Frequency of Binge Drinking Not on file 11/18 Abuse Screen Answer Date Recorded Unsafe at Home or Work/School Not on file Feels Threatened by Someone? Not on file 12/2022 Does Anyone Keep You from Co ntacting Others or Doint Things Outside the Home? Not on file 12/26/2022 Physical Sign of Abuse Present Not on file 1 Housing Stability Answer Date Recorded Current Living Arrangements Not on file 12/17 Potentially Unsafe Housing Conditions Not on tammie e 12/26/2022 Family and Community Support Answer Mega e Recorded Help with Day-to-Day Activities Not on file 12/26/2022 Lonely or Isolated Not on file 12/26/2022 Employment Answer Date Recorded Do you want help finding or keeping work or a roque b? Not on file 12/26/2022 Disabilities Answer Date Recorded Concentrating, Remembering, or Making Decisions Difficulty Not on file 12/26/2022 Doing Errands Independently Difficulty Not on fi le 12/26/2022 Education Answer Date Recorded Help with school or training? 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 Not on file Not on file Last Filed Vital Signs Vital Sign Reading Time Taken Comments Blood Pressure 120/78 12/31/2019 10:22 AM EDT Pulse - - Temperature - - Respiratory Rate - - Oxygen Saturation - - Inhaled Oxygen Concentration - - Weight 83 kg (183 lb) 12/31/2019 10:22 AM EDT Height 157.5 cm (5' 2 ) 12/31/2019 10:22 AM EDT Body Mass Index 33.47 12/31/2019 10:22 AM EDT Plan of Treatment Health Maintenance Due Date Last Done Comments Annual Gynecologic Pelvic and Breast Exam 1980 ANNUAL PHYSICAL 12/14/2019 HEPATITIS C SCREENING 12/14/2019 COLOGUARD 08/02/2023 COLON CANCER SCREENING 5 YEAR SIGMOIDOSCOPY 08/02/2023 COLONOSCOPY 08/02/2023 COLORECTAL CANCER SCREENING 08/02/2023 CT COLONOGRAPHY 08/02/2023 FECAL OCCULT BLOOD TEST 08/02/2023 FIT Testing (1 year) 08/02/2023 MAMMOGRAM 09/01/2023 08/31/2021, 0508/2021, 03/15/2020, Additional history exists COVID-19 Vaccine ( - season) 2023 TDAP/TD VACCINES (2 - Td or Tdap) 01/20/2024 01/19/2014 INFLUENZA VACCINE 12/17/2024 Pneumococcal Vaccine 0-49 Aged Out No longer eligible based on patient's age to complete this topic Procedures Procedure Name Priority Date/Time Associated Diagnosis Comments MAMMO DIAGNOSTIC DIGITAL TOMOSYNTHESIS RIGHT W CAD Routine 08/31/2021 9:25 AM EDT Abnormal mammogram from Last 3 Months or Most Recently Relevant to Health Maintenance Results * Mammo Diagnostic Digital Tomosynthesis Right With CAD (08/31/2021 9:25 AM EDT) Anatomical Region Laterality Modality Breast Right Mammography 08/31/2021 9:51 AM EDT Impressions 08/31/2021 9:53 AM EDT No findings suspicious for malignancy BI-RADS CATEGORY: 2, BENIGN RECOMMENDATION: Return to screening CAD was utilized. The standard false-negative rate of mammography is between 10% and 25%. Complex patterns or increased breast density will markedly elevate the false-negative rate of mammography. A letter, in lay terminology, with the results of this exam was given to the patient at the time of the visit. This report was finalized on 08/31/2021 9:[address] Radha Thapa MD. Narrative 08/31/2021 9:53 AM EDT RIGHT DIAGNOSTIC MAMMOGRAM WITH TOMOSYNTHESIS WITH RIGHT ULTRASOUND CLINICAL INDICATION: Potential distortion in the anterior right breast and a small round asymmetry in the subareolar right breast seen on the CC view screening mammography 08/11/2021 TECHNIQUE: Spot compression 2-D 3-D right CC, focused ultrasound COMPARISON: Prior exams dating back to 2019 FINDINGS: With the additional imaging reproducible distortion is not appreciated. An isodense 3 mm vague round asymmetry is seen. From the stereotactic images this appears to be at the 12 to 1:00 position of the right breast. Ultrasound reveals multiple small less less than 3 to 4 mm cysts at the 12 to 1:00 position of the right breast. These may represent forming oil cysts. us Eloise Morrell MD IMG MAMMOGRAPHY ORDERABLES Fin al Result from Last 3 Months or Most Recently Relevant to Health Maintenance Insurance [facility] PPO Care Teams Hospital Receiving Clerk Relationship Specialty Start Date End Date Marina Gan APRN [facility] [place][note 2] [place] [address] PCP - General Family Medicine 12/31/19
--- OUTSIDE RECORDS SUMMARY | 2024-11-17 08:43 | XMS_ITS | Encounter Summary ---
Author Organization Healthcare Address [address] [place] [address] Care Team Providers Care Land Leases And Rentals Manager Name Role Phone Marina Gan APRN Primary Care Provider [phone] Encounter Details Date Type Department Care Team ([facility] st Contact Info) Description 09/06/2022 Outside Procedure External Location [address] [place] [id number] Provider, [place] [place] Social History Tobacco Use Types Packs/Day Years Used Date Smoking Tobacco: Never Smokeless Tobacco: Never PHQ-2 Answer Date Recorded Patient Health Questionnaire-2 Score 0 09/08/2022 Comments Unknown Sex and Gender Information Value Date Recorded Sex Assigned at Not on file Legal Sex Female 6:23 PM EDT Gender Identity Not on file Sexual Orientation Not on file documented as of this encounter Functional Status * Over the past 2 weeks, how often have you been bothered by any of the following problems? Question Answer Date of Assessment Author Little interest or pleasure in doing things Not at all 09/08/2022 2:24 PM EDT Patricia Kraft Feeling down, depressed, or hopeless Not at all 09/08/2022 2:24 PM EDT Patricia Kraft Patient Health Questionnaire -2 Score 0 09/08/2022 2:24 PM EDT Patricia Kraft documented as of this encounter Plan of Treatment Not on file documented as of this encounter Procedures Procedure Name Priority Date/Time Associated Diagnosis Comments CT HEAD WO IV CONTRAST 09/06/2022 3:09 PM EDT documented in this encounter Results * CT Head wo IV Contrast (09/06/2022 3:09 PM EDT) Anatomical Region Laterality Modality Head Computed Tomogra phy 09/06/2022 3:09 PM EDT Narrative 09/06/2022 3:29 [place] [address] Name: KATHLEEN EUGENE Exam Date: 09/06/2022 : 1980 Age 42 Gender: F Physician: FRANCISCO MARAVILLA Facility: [facility] Facility HSV: Outpatient Exam: CT BRAIN W/O (STROKE PROTOCOL) EXAMINATION: CT HEAD WITHOUT IV CONTRAST INDICATION: Consent for stroke. TECHNIQUE: Contiguous axial noncontrast CT images of the head. Coronal and sagittal reformatted images were generated and reviewed. COMPARISON: None FINDINGS: No evidence of acute hemorrhage. No evidence of brain parenchymal ischemia. No extra-axial collection. No mass effect, midline shift, or herniation Normal ventricular configuration. Visualized orbital structures are unremarkable. Visualized paranasal sinuses are clear No abnormality of the scalp soft tissues. No evidence of skull fracture. IMPRESSION: No acute intracranial abnormality. Dictated By: Vidal Camilo Transcribed By: Vidal Middleton Transcribed On: 09/06/2022 3:18 PM Electronically signed by: Vidal Camilo 09/06/2022 Thank you for referring KATHLEEN EUGENE to [facility]. Legally authenticated by JONE MEZA 2022-09-06 15:18:04 Procedure Note Provider, Generic [facility] - 09/06/2022 [place] [address] Name: KATHLENE EUGENE Exam Date: 09/06/2022 : 1980 Age 42 Gender: F Physician: FRANCISCO MARAVILLA Facility: [facility] Facility HSV: Outpatient Exam: CT BRAIN W/O (STROKE PROTOCOL) EXAMINATION: CT HEAD WITHOUT IV CONTRAST INDICATION: Consent for stroke. TECHNIQUE: Contiguous axial noncontrast CT images of the head. [place] sagittal reformatted images were generated and reviewed. COMPARISON: None FINDINGS: No evidence of acute hemorrhage. No evidence of brain parenchymalischemia. No extra-axial collection. No mass effect, midline shift, or herniation Normal ventricular configuration. Visualized orbital structures are unremarkable. Visualized paranasalsinuses are clear No abnormality of the scalp soft tissues. No evidence of skull fracture. IMPRESSION: No acute intracranial abnormality. Dictated By: Vidal Camilo Transcribed By: Vidal Middleton Transcribed On: 09/06/2022 3:18 PM Electronically signed by: Vidal Camilo 09/06/2022 Thank you for referring NIDA KATHLEEN to [facility]. Legally authenticated by JONE MEZA 2022-09-06 15:18:04 Generic [facility] [place] Provider IMG CT PROCEDURES Fi nal Result documented in this encounter Visit Diagnoses Not on filedocumented in this encounter Additional Health Concerns Assessment Noted Time A fall risk assessment has been complete d for the patient 03/14/2021 7:50 AM EST A Body Mass Index follow-up plan has been documented for the patient 07/31/2022 12:34 PM EDT documented as of this encounter Care Teams Land Leases And Rentals Manager Relationship Specialty Start Date End Date Marina Gan APRN [address] [place] [address] PCP - General 07/30/20 documented as of this encounter
--- OUTSIDE RECORDS SUMMARY | 2024-11-17 08:43 | XMS_ITS | Encounter Summary ---
Author Organization Healthcare Address [address] [place] [address] Care Team Providers Care Compensation Director Name Role Phone Marina Gan APRN Primary Care Provider [phone] Encounter Details Date Type Department Care Team (Late st Contact Info) Description 07/02/2023 Outside Procedure External Location [address] [place] [address] Delfin Robbins MD [address] [place] [address] Social History Tobacco Use Types Packs/Day Years Used Date Smoking Tobacco: Never Passive Smoke Exposure: Never Smokeless Tobacco: Never PHQ-2 Answer Date Recorded Patient Health Questionnaire-2 Score 0 06/20/2023 PHQ-2A Answer Date Recorded Patient Health Questionnaire-2 Score 0 09/11/2022 Comments No Sex and Gender Information Value Date Recorded Sex Assigned at Not on file Legal Sex Female 6:23 PM EDT Gender Identity Not on file Sexual Orientation Not on file documented as of this encounter Plan of Treatment Not on file documented as of this encounter Procedures Procedure Name Priority Date/Time Associated Diagnosis Comments MAMMOGRAPHY BREAST SCREENING TOMOSYNTHESIS BILATERAL 07/02/2023 12:56 PM EDT documented in this encounter Results * Mammography Breast Screening Tomosynthesis Bilateral (07/02/2023 12:56 PM EDT) Anatomical Region Laterality Modality Breast Bilateral Mammography 07/02/2023 12:5 6 PM EDT Narrative 07/04/2023 3:49 [place] [address] Name: KATHLEEN EUGENE Exam Date: 07/02/2023 : 1980 Age 42 years Gender: F Physician: DELFIN ROBBINS Facility: [facility] Facility HSV: Outpatient Exam: ABE SCRN MAMMO W/CAD BILAT MAMMOGRAM SCREENING BILATERAL HISTORY: Routine screening exam COMPARISON: March 15, 2020, August 11, 2021 TECHNIQUE: Standard digital 2-D views with 3-D tomosynthesis DENSITY: There are scattered areas of fibroglandular density FINDINGS: Slightly more prominent central left breast asymmetry visualized on CC view only. Benign calcifications. No additional mass, suspicious calcifications or architectural distortion is present. IMPRESSION: More prominent central left breast asymmetry visualized on CC view only. Additional spot compression view is recommended. BI-RADS 0: Incomplete, needs additional imaging evaluation. RECOMMENDATION: Additional left breast imaging is required CAD was utilized during interpretation. The patient will be sent a letter from the mammography department with their mammography results. Dictated By: Vidal Camilo Transcribed By: Vidal Middleton Transcribed On: 07/04/2023 3:23 PM Electronically signed by: Vidal Camilo 07/04/2023 Thank you for referring KATHLEEN EUGENE to [facility]. Legally authenticated by JONE MEZA 2023-07-04 15:23:17 Procedure Note Provider, Generic [place] - 07/04/[address] [address] Name: KATHLEEN EUGENE Exam Date: 07/02/2023 : 1980 Age 42 years Gender: F Physician: DELFIN ROBBINS Facility: [facility] Facility HSV: Outpatient Exam: ABE SCRN MAMMO W/CAD BILAT MAMMOGRAM SCREENING BILATERAL HISTORY: Routine screening exam COMPARISON: March 15, 2020, August 11, 2021 TECHNIQUE: Standard digital 2-D views with 3-D tomosynthesis DENSITY: There are scattered areas of fibroglandular density FINDINGS: Slightly more prominent central left breast asymmetry visualizedon CC view only. Benign calcifications. No additional mass, suspicious calcifications or architectural distortion is present. IMPRESSION: More prominent central left breast asymmetry visualized on CCview only. Additional spot compression view is recommended. BI-RADS 0: Incomplete, needs additional imaging evaluation. RECOMMENDATION: Additional left breast imaging is required CAD was utilized during interpretation. The patient will be sent a letter from the mammography department withtheir mammography results. Dictated By: Vidal Camilo Transcribed By: Vidal Middleton Transcribed On: 07/04/2023 3:23 PM Electronically signed by: Vidal Camilo 07/04/2023 Thank you for referring KATHLEEN EUGENE to [facility]. Legally authenticated by JONE MEZA 2023-07-04 15:23:17 us Delfin Robbins MD IMG BI PROCEDURES Final Result documented in this encounter Visit Diagnoses Not on filedocumented in this encounter Additional Health Concerns Assessment Noted Time A fall risk assessment has been complete d for the patient 06/20/2023 10:18 AM EDT A Body Mass Index follow-up plan has been documented for the patient 06/20/2023 11:33 AM EDT documented as of this encounter Care Teams Compensation Director Relationship Specialty Start Date End Date Marina Gan APRN [address] [place] [address] PCP - General 07/30/20 documented as of this encounter
--- OUTSIDE RECORDS SUMMARY | 2024-11-17 08:43 | XMS_ITS | Clinical Summary ---
Author Organization [facility] Address [address] [place] [address] Care Team Providers Care Drain Cleaner Name Role Phone Marina Gan APRN Primary Care Provider [phone] Allergies Active Allergy Reactions Criticality Noted Date Comments Gluten Meal Swelling High 04/27/2023 Penicillins Rash Low 06/12/2014 Procaine Other - please document in the comment field Low 05/07/2023 Novacaine - swelling Sulfamethoxazole-Trimet hoprim Itching,Unknown - Patient states they do not know rxn details Medium 06/12/2014 Medications spironolactone (Aldactone) 50 MG tablet Take 1 tablet by mouth twice daily 180 tablet 3 2 Active Additional Information Patient taking differently: Patient states she takes this PRN only 07/26/23, Reported on 07/26/2023 levonorgestrel (Mirena) 20 MCG/DAY IUD 1 each by Intrauterine route 1 (one) time. Active Multiple Vitamin (multivitamin) capsule Take 1 capsule by mouth 1 (one) time each day. Patient takes OTC Active levothyroxine (Euthyrox) 100 MCG tablet Take 1 tablet (100 mcg) by mouth 1 (one) time each day in the morning. 90 tablet 1 4 Active losartan (Cozaar) 25 MG tabletIndication s:Essential (primary) hypertension Take 1 tablet (25 mg) by mouth 1 (one) time each day. 30 tablet 11 4 025 Active Active Problems Problem Noted Date Diagnosed Date Menopausal symptoms 05/08/2019 Anxiety with depression 05/08/2019 Hypothyroidism (acquired) 08/19/2018 Elevated BP without diagnosis of hypertension Immunizations Immunization Administration Dates Next Due Hep A, Adult 02/26/2018 Tdap 01/19/2014 Family History Medical History Relation Name Comments Arthritis Father Charissa Martinez Arthritis Mother Alicia Martinez Relation Name Status Comments Father Charissa Martinez Mother Alicia Martinez Social History Tobacco Use Types Packs/Day Years Used Date Smoking Tobacco: Never Passive Smoke Exposure: Never Smokeless Tobacco: Never Tobacco Cessation:Counseling Given: Not Answered Alcohol Use Standard Drinks/Week Comments Never 0 (1 standard drink = 0.6 oz pur e alcohol) Humiliation, Afraid, Rape, and Kick questionnair e Answer Date Recorded Within the last year, have y ou been afraid of your partner or ex-partner? No 12/10/2023 Within the last year, have y ou been humiliated or emotionally abused in other ways by your partner or ex-partner? No Within the last year, have y ou been kicked, hit, slapped, or otherwise physically hurt by your partner or ex-partner? No 12/10/2023 Within the last year, have y ou been raped or forced to have any kind of sexual activity by your partner or ex-partner? No 12/10/2023 PHQ-2 Answer Date Recorded Patient Health Questionnaire-2 Score 0 12/10/2023 Hunger Vital Sign Answer Date Recorded Within the past 12 months, y ou worried that your food would run out before you got the money to buy more. Never true 12/10/19 24 Within the past 12 months, t he food you bought just didn't last and you didn't have money to get more. Never true 12/10/2023 PRAPARE - Transportation Answer Date Re corded In the past 12 months, has l ack of transportation kept you from medical appointments or from getting medications? No 11/18 In the past 12 months, has l ack of transportation kept you from meetings, work, or from getting things needed for daily living? No 12/10/2023 Housing Stability Vital Sign Answer Mega e Recorded In the last 12 months, was t here a time when you were not able to pay the mortgage or rent on time? No 12/10/2023 In the last 12 months, how many places have you lived? 1 12/10/2023 In the last 12 months, was t here a time when you did not have a steady place to sleep or slept in a correction (including now)? No 12/10/2023 Utilities Answer Date Recorded In the past 12 months has [facility] [employer] [employer], gas, oil, or water company threatened to shut off services in your home? No 12/10/2023 PHQ-2A Answer Date Recorded Patient Health Questionnaire-2 Score 0 09/11/2022 Comments No Sex and Gender Information Value Date Recorded Sex Assigned at Not on file Legal Sex Female 6:23 PM EDT Gender Identity Not on file Sexual Orientation Not on file Last Filed Vital Signs Vital Sign Reading Time Taken Comments Blood Pressure 120/80 12/10/2023 9:25 AM EDT Pulse 55 12/10/2023 9:25 AM EDT Temperature 36.8 C (98.3 F) 05/07/2023 1:34 PM EST Respiratory Rate 18 05/23/2023 11:16 AM EST Oxygen Saturation 96% 12/10/2023 9:25 AM EDT Inhaled Oxygen Concentration - - Weight 83.5 kg (184 lb) 12/27/2023 1:02 PM EDT Height 157.5 cm (5' 2 ) 12/27/2023 1:02 PM EDT Body Mass Index 33.65 12/27/2023 1:02 PM EDT Plan of Treatment Health Maintenance Due Date Last Done Comments [facility]-HIV Screening 1980 [facility]-Hepatitis C Screening 1980 [facility]-Infant/Child/Adol SDOH Screenings 1980 [id number] Vaccine (#1) 08/02/1983 [facility]-Hepatitis B Vaccines (1 of 3 - 19+ 3-dose series) 1997 CT Colonography 08/02/2023 Colonoscopy 08/02/2023 FIT-DNA 08/02/2023 FIT 08/02/2023 FOBT 08/02/2023 Sigmoidoscopy 08/02/2023 [facility]-Colorectal Cancer Screening 08/02/2023 [facility]-DTaP,Tdap,and Td Vaccines (2 - Td or Tdap) 01/20/2024 01/19/2014 [facility]- SDOH Screenings 06/08/2024 [facility]-Adult SDOH Screenings 06/08/2024 12/10/2023 [facility]-Pap Smear 07/27/2024 07/27/2021, 0303/2016, 04/28/2015 [facility]-Influenza Vaccine (#1) 2024 [facility]-Depression Screening 12/09/2024 12/10/2023 [facility]-Cervical Cancer Screening 07/27/2026 [facility]-HPV/Cotest 07/27/2026 07/27/2021, 0303/2016, 04/28/2015 [facility]-Zoster Vaccines (1 of 2) 2028 [facility]-Hepatitis A Vaccines Aged Out 02/26/2018 No longer eligible based on patient's age to complete this topic [facility]-Obesity Intervention Completed 024, 12/10/2023, 06/20/2023, Additional history exists HPV Vaccines Aged Out No longer eligi ble based on patient's age to complete this topic [facility]-HIB Vaccines Aged Out No longer e ligible based on patient's age to complete this topic [facility]-IPV Vaccines Aged Out No longer e ligible based on patient's age to complete this topic [facility]-Pneumococcal Vaccine: Pediatrics (0 to 5 Years) and At-Risk Patients (6 to 49 Years) Aged Out No longer eligible based on patient's age to complete this topic [facility]-Rotavirus Vaccines Aged Out No lo nger eligible based on patient's age to complete this topic Procedures Procedure Name Priority Date/Time Associated Diagnosis Comments PAP TEST - CYTOLOGY Routine 07/27/2021 11:58 AM EDT Encounter for annual routine gynecological examination from Last 3 Months or Most Recently Relevant to Health Maintenance Results * Pap Smear (07/27/2021 11:58 AM EDT) Case Report Cytology Case: [id number] Authorizing Provider: Delfin Robbins MD Collected: 07/27/2021 1158 Ordering Location: Obstetrics & Gynecology Received: 07/28/2021 0837 First Screen: Chirag Barry, CT Specimen: ThinPrep Pap Test, Liquid-Based Cervical/Vaginal, CERVICAL/VAGINAL 08/02/2021 7:17 AM EDT [facility] Interpretation NEGATIVE FOR INTRAEPITHELIAL LESION OR MALIGNANCY 08/02/2021 7:17 AM EDT [facility] at 0717 EDT Other Findings Shift in mecca suggestive of bacterial vaginosis. 08/02/2021 7:17 AM EDT [facility] Specimen Adequacy Satisfactory for evaluation; endocervical/españa sformation zone component absent/insufficie nt. Slide scanned and imaged by [employer] with manual review of all selected win. 08/02/2021 7:17 AM EDT [facility] Cervical cytology is a screening test primarily for squamous cancers and precursors and has associated false negative and positive results. New technologies such as liquid based sampling may decrease but will not eliminate all false negative results. Regular screening and follow-up of unexplained clinical signs and symptoms are recommended to minimize false negative results. Please see the ASCCP website (www.asccp.org)fo r followup recommendations. If HPV testing was requested, correlation with the results is suggested (please call Microbiology at [phone] for results). 08/02/2021 7:17 AM EDT [facility] Menstrual Status Cyclic 08/03/19 7:17 AM EDT [facility] Contraceptive History Intrauterine device 08/02/2021 7:17 AM EDT [facility] Screening Type Routine Screen 2021 7:17 AM EDT [facility] High Risk? No 08/02/2021 7:17 AM EDT [facility] HPV Testing Requested? Request HPV Testing if ASCUS (Women 25 Years or Older) 08/02/2021 7:17 AM EDT [facility] Previous Cancer History No 08/02/2021 7:17 AM EDT [facility] Clinical Information Z01.419 - Encounter for annual routine gynecological examination [ICD-10-CM] 08/02/2021 7:17 AM EDT [facility] Last Menstrual Period 07/17/21 08/02/2021 7:17 AM EDT [facility] Swab Vaginal and cervical cytologic material / Unknown Non-blood Collection / Unknown 07/27/2021 11:58 AM EDT 07/28/2021 8:37 AM EDT us Delfin Robbins MD LAB CYTOLOGY ORDERABLES Final R [facility] [address] [place] [address] from Last 3 Months or Most Recently Relevant to Health Maintenance Insurance ANTH Care Teams Drain Cleaner Relationship Specialty Start Date End Date Marina Gan APRN [address] [place] [address] PCP - General 07/30/20
--- OUTSIDE RECORDS SUMMARY | 2024-11-17 08:43 | XMS_ITS | Encounter Summary ---
Author Organization [facility] Address [address] [place] [address] Care Team Providers Care Family Resource Management Specialist Name Role Phone Jean Carlos Schuster APRN Primary Care Provider [phone] Encounter Details Date Type Department Care Team (Late st Contact Info) Description 09/18/2022 Outside Procedure External Location [address] [place] [address] Jean Carlos Schuster APRN [address] [place] [address] Social History Tobacco Use Types Packs/Day Years Used Date Smoking Tobacco: Never Passive Smoke Exposure: Never Smokeless Tobacco: Never PHQ-2 Answer Date Recorded Patient Health Questionnaire-2 Score 0 09/11/2022 PHQ-2A Answer Date Recorded Patient Health Questionnaire-2 Score 0 09/11/2022 Comments Unknown Sex and Gender Information Value Date Recorded Sex Assigned at Not on file Legal Sex Female 6:23 PM EDT Gender Identity Not on file Sexual Orientation Not on file documented as of this encounter Plan of Treatment Not on file documented as of this encounter Procedures Procedure Name Priority Date/Time Associated Diagnosis Comments ECHO, ADULT TRANSTHORACIC COMPLETE W/ COLOR AND DOPPLER 09/18/2022 12:40 PM EDT documented in this encounter Results * Echo, Adult Transthoracic Complete w/ Color and Doppler (09/18/2022 12:40 PM EDT) Anatomical Region Laterality Modality Ultrasound 09/18/2022 12:4 0 PM EDT Narrative 09/20/2022 9:36 AM EDT [facility] [address] [place] [address] Name: KATHLEEN EUGENE Exam Date: 09/18/2022 : 1980 Age 42 Gender: F Physician: JEAN CARLOS SCHUSTER Facility: [facility] Facility HSV: Outpatient Exam: ECHO W SPEC COLOR FLOW Reason for Study: TIA SUMMARY Normal LV size with normal function. The ejection fraction is 65-70%. Normal diastolic function. INTERPRETATION DETAIL Fair quality study. Left ventricle: The left ventricle is normal in size with normal systolic function. The ejection fraction is 65-70%. There is normal LV wall thickness. The left ventricular wall motion is normal. Mitral filling indicates Normal diastolic function. Left atrium: The left atrium is normal. LA volume: 30.1mL, LA volume index: 16.2mL/mA . Right ventricle: The right ventricle is normal in size with normal function. Right atrium: The right atrium is normal. Mitral valve: The mitral valve is mildly thickened. There is no mitral stenosis. There is trace mitral regurgitation. Aortic valve: The aortic valve is normal and trileaflet. There is no aortic stenosis. AV peak jknnremt=589yl/sec. There is no aortic regurgitation. Tricuspid valve: The tricuspid valve is normal. There is no tricuspid regurgitation, so PA pressure cannot be estimated. Pulmonic valve: The pulmonic valve is normal. Pericardium: The pericardium is normal. Interatrial septum: The interatrial septum is normal. Aorta: The aortic root is normal. Aortic dimensions - Ao M-mode= 2.90cm, Ascending=2.50cm. Vena Cava: The inferior vena cava is normal. MEASUREMENTS Left Ventricle IVSd: 0.79cm (0.6-1.1cm) PWd: 0.70cm (0.6-1.1cm) Mass [place]: 127g LVMI: 68g/mA (>50-95g/m) LVIDd: 5.06cm (3.7-5.6 cm) LVIDdI: 2.72cm/m2 LVIDs: 2.94cm (1.8-4.2 cm) LVIDsI: 1.58cm/m2 RWT: 0.28 ( E to A: 1.35 (0.6-2) E-e prime med: 9.55 E-e prime lat: 8.08 Decel: 182.00ms (168-232ms) PVmaxS D: 1.000 Max Valve Velocities AV peak marion: 124cm/sec LVOT: 111.00cm/sec Atria LA AP: 3.4cm LA vol: 30.1mL ELVIN: 16.2mL/mA (16-28ml/m2) Legally authenticated by JABIER Hernandez 2022-09-20 09:24:34 Caleb Eugene MD Dictated By: CALEB EUGENE Transcribed By: Transcribed On: 09/20/2022 9:24 AM Electronically signed by: CALEB EUGENE 09/20/2022 Thank you for referring JABIERKATHLEEN to [facility]. Legally authenticated by JABIER Hernandez 2022-09-20 09:24:34 Procedure Note Provider, [facility] - 09/20/2022 [place] [address] Name: KATHLEEN EUGENE Exam Date: 09/18/2022 : 1980 Age 42 Gender: F Physician: JEAN CARLOS SCHUSTER Facility: [facility] Facility HSV: Outpatient Exam: ECHO W SPEC COLOR FLOW Reason for Study: TIA SUMMARY Normal LV size with normal function. The ejection fraction is 65-70%. Normal diastolic function. INTERPRETATION DETAIL Fair quality study. Left ventricle: The left ventricle is normal in size with normal systolic function. The ejection fraction is 65-70%. There is normal LV wall thickness. The left ventricular wall motion is normal. Mitral filling indicates Normal diastolic function. Left atrium: The left atrium is normal. LA volume: 30.1mL, LA volume index: 16.2mL/mA . Right ventricle: The right ventricle is normal in size with normal function. Right atrium: The right atrium is normal. Mitral valve: The mitral valve is mildly thickened. There is no mitral stenosis. There is trace mitral regurgitation. Aortic valve: The aortic valve is normal and trileaflet. There is no aortic stenosis. AV peak avmtulux=328kj/sec. There is no aortic regurgitation. Tricuspid valve: The tricuspid valve is normal. There is no tricuspid regurgitation, so PA pressure cannot be estimated. Pulmonic valve: The pulmonic valve is normal. Pericardium: The pericardium is normal. Interatrial septum: The interatrial septum is normal. Aorta: The aortic root is normal. Aortic dimensions - Ao M-mode= 2.90cm, Ascending=2.50cm. Vena Cava: The inferior vena cava is normal. MEASUREMENTS Left Ventricle IVSd: 0.79cm (0.6-1.1cm) PWd: 0.70cm (0.6-1.1cm) Mass Enid: 127g LVMI: 68g/mA (>50-95g/m) LVIDd: 5.06cm (3.7-5.6 cm) LVIDdI: 2.72cm/m2 LVIDs: 2.94cm (1.8-4.2 cm) LVIDsI: 1.58cm/m2 RWT: 0.28 ( E to A: 1.35 (0.6-2) E-e prime med: 9.55 E-e prime lat: 8.08 Decel: 182.00ms (168-232ms) PVmaxS D: 1.000 Max Valve Velocities AV peak marion: 124cm/sec LVOT: 111.00cm/sec Atria LA AP: 3.4cm LA vol: 30.1mL ELVIN: 16.2mL/mA (16-28ml/m2) Legally authenticated by JABIER Hernandez 2022-09-20 09:24:34 Caleb Eugene MD Dictated By: CALEB EUGENE Transcribed By: Transcribed On: 09/20/2022 9:24 AM Electronically signed by: CALEB EUGENE 09/20/2022 Thank you for referring KATHLEEN EUGENE to [facility]. Legally authenticated by JABIER Hernandez 2022-09-20 09:24:34 Jean Carlos Schuster APRN CV ECHO PROCEDURES Final Re sult documented in this encounter Visit Diagnoses Not on filedocumented in this encounter Additional Health Concerns Assessment Noted Time A fall risk assessment has been complete d for the patient 03/14/2021 7:50 AM EST A Body Mass Index follow-up plan has been documented for the patient 09/11/2022 12:02 PM EDT documented as of this encounter Care Teams Family Resource Management Specialist Relationship Specialty Start Date End Date Jean Carlos Schuster APRN [address] [place] [phone] PCP - General 07/30/20 documented as of this encounter
--- OUTSIDE RECORDS SUMMARY | 2024-11-17 08:43 | XMS_ITS | Encounter Summary ---
Author Organization [facility] Address [address] [place] [address] Care Team Providers Care Stringed Instrument Repairer Name Role Phone Marina Gan APRN Primary Care Provider [phone] Encounter Details Date Type Department Care Team ([facility] st Contact Info) Description 09/06/2022 Outside Procedure External Location [address] [place] [id number] Provider, [place] [place] Social History Tobacco Use Types Packs/Day Years [...] Name Priority Date/Time Associated Diagnosis Comments CT ANGIO HEAD 09/06/2022 3:09 PM EDT documented in this encounter Results * CT Angio Head (09/06/2022 3:09 PM EDT) Anatomical Region Laterality Modality [place] Computed Tomogr aphy 09/06/2022 3:09 PM EDT Narrative 09/06/2022 3:51 PM EDT [address] [place] [address] Name: KATHLEEN EUGENE Exam Date: 09/06/2022 : 1980 Age 42 Gender: F Physician: FRANCISCO MARAVILLA Facility: [facility] Facility HSV: Outpatient Exam: CTA HEAD W/CONT EXAMINATION: CTA BRAIN AND NECK. CLINICAL INDICATION: STROKE TECHNIQUE: Axial CT scan images were performed from the vertex to the thoracic inlet with administration of intravenous contrast during the arterial phase and reformatted in coronal and sagittal planes, with additional 3D reconstructions performed. COMPARISON: FINDINGS: VASCULAR: Normal 3-vessel aortic arch. The common, internal, and external carotid arteries are patent with no evidence of aneurysm, stenosis, or dissection. The vertebral arteries are patent and course normally through the cervical spine with no evidence of stenosis or dissection. The distal internal carotid arteries are unremarkable. The anterior cerebral arteries are symmetric and patent. The anterior communicating artery is unremarkable. Both middle cerebral arteries are patent and unremarkable to the level of the bifurcation/trifurcation. No evidence of aneurysm or high-grade stenosis. The vertebrobasilar system and its major branches are normal in contour and caliber bilaterally, including the bilateral posterior cerebral arteries. Visualized portions of the superior sagittal sinus, inferior sagittal sinus, transverse sinus, and straight sinus are unremarkable. IMPRESSION: Patent cervical and intracranial arteries. No major vessel occlusion. Dictated By: Vidal Camilo Transcribed By: Vidal Middleton Transcribed On: 09/06/2022 3:39 PM Electronically signed by: Vidal Camilo 09/06/2022 Thank you for referring KATHLEEN EUGENE to [facility]. Legally authenticated by JONE MEZA 2022-09-06 15:39:14 Procedure Note Provider, [facility] [place] - 09/06/2022 [facility] [address] [place] [address] Name: KATHLEEN EUGENE Exam Date: 09/06/2022 : 1980 Age 42 Gender: F Physician: FRANCISCO MARAVILLA Facility: [facility] Facility HSV: Outpatient Exam: CTA HEAD W/CONT EXAMINATION: CTA BRAIN AND NECK. CLINICAL INDICATION: STROKE TECHNIQUE: Axial CT scan images were performed from the vertex to thethoracic inlet with administration of intravenous contrast during the arterialphase and reformatted in coronal and sagittal planes, with additional 3D reconstructions performed. COMPARISON: FINDINGS: VASCULAR: Normal 3-vessel aortic arch. The common, internal, and external carotid arteries are patent with no evidence of aneurysm, stenosis, or dissection. The vertebral arteries are patent and course normally through thecervical spine with no evidence of stenosis or dissection. The distal internal carotid arteries are unremarkable. The anteriorcerebral arteries are symmetric and patent. The anterior communicating artery is unremarkable. Both middle cerebral arteries are patent and unremarkable tothe level of the bifurcation/trifurcation. No evidence of aneurysm orhigh-grade stenosis. The vertebrobasilar system and its major branches are normal in contourand caliber bilaterally, including the bilateral posterior cerebralarteries. Visualized portions of the superior sagittal sinus, inferior sagittalsinus, transverse sinus, and straight sinus are unremarkable. IMPRESSION: Patent cervical and intracranial arteries. No major vessel occlusion. Dictated By: Vidal Camilo Transcribed By: Vidal Middleton Transcribed On: 09/06/2022 3:39 PM Electronically signed by: Vidal Camilo 09/06/2022 Thank you for referring KATHLEEN EUGENE to [facility]. Legally authenticated by JONE MEZA 2022-09-06 15:39:14 us Generic [place] Provider IMG CT PROCEDURES Fi nal Result documented in this encounter Visit Diagnoses Not on filedocumented in this encounter Additional Health Concerns Assessment Noted Time A fall risk assessment has been complete d for the patient 03/14/2021 7:50 AM EST A Body Mass Index follow-up plan has been documented for the patient 07/31/2022 12:34 PM EDT documented as of this encounter Care Teams Stringed Instrument Repairer Relationship Specialty Start Date End Date Marina Gan APRN [address] [place] [phone] PCP - General 07/30/20 documented as of this encounter
--- OUTSIDE RECORDS SUMMARY | 2024-11-17 08:43 | XMS_ITS | Encounter Summary ---
Author Organization [facility] Address [address] [place] [address] Care Team Providers Care Chief Of Police Name Role Phone Marina Gan APRN Primary Care Provider [phone] Encounter Details Date Type Department Care Team (Late st Contact Info) Description 2023 Outside Procedure External Location [address] [place] [address] Delfin Robbins MD [address] [place] [address] Social History Tobacco Use Types [...] Priority Date/Time Associated Diagnosis Comments MAMMOGRAPHY BREAST POST BIOPSY CLIP LEFT 2023 7:35 AM EDT documented in this encounter Results * Mammography Breast Post Biopsy Clip Left (2023 7:35 AM EDT) Anatomical Region Laterality Modality Breast Left Mammography 2023 7:35 AM EDT Narrative 2023 8:46 AM EDT [address] [address] Name: KATHLEEN EUGENE Exam Date: 2023 : 1980 Age 42 years Gender: F Physician: DELFIN ROBBINS Facility: [facility] Facility HSV: Outpatient Exam: ABE DIAG MAMMO W/CAD LT MAMMOGRAM DIAGNOSTIC LEFT TECHNIQUE: Spot digital 2-D views with 3-D tomosynthesis HISTORY: Abnormal screening exam COMPARISON: July 02, 2023, August 31, 2021, August 11, 2021 DENSITY: There are scattered areas of fibroglandular density FINDINGS: Additional spot compression views of the central left breast demonstrates increased prominence of asymmetry to be due to summation artifact. No new suspicious mass, suspicious calcifications or architectural distortion is present. Overall pattern is stable. IMPRESSION: Stable mammographic evaluation without evidence of malignancy BI-RADS 2: Benign finding RECOMMENDATION: Annual mammography CAD was utilized during interpretation. The patient will be sent a letter from the mammography department with their mammography results. Dictated By: Vidal Camilo Transcribed By: Vidal Middleton Transcribed On: 2023 8:35 AM Electronically signed by: Vidal Camilo 2023 Thank you for referring KATHLEEN EUGENE to [facility]. Legally authenticated by JONE MEZA 2023 08:35:30 Procedure Note Provider, Generic [place] - [address] [address] Name: KATHLEEN EUGENE Exam Date: 2023 : 1980 Age 42 years Gender: F Physician: DELFIN ROBBINS Facility: [facility] Facility HSV: Outpatient Exam: ABE DIAG MAMMO W/CAD LT MAMMOGRAM DIAGNOSTIC LEFT TECHNIQUE: Spot digital 2-D views with 3-D tomosynthesis HISTORY: Abnormal screening exam COMPARISON: July 02, 2023, August 31, 2021, August 11, 2021 DENSITY: There are scattered areas of fibroglandular density FINDINGS: Additional spot compression views of the central left breast demonstrates increased prominence of asymmetry to be due to summation artifact. No new suspicious mass, suspicious calcifications orarchitectural distortion is present. Overall pattern is stable. IMPRESSION: Stable mammographic evaluation without evidence ofmalignancy BI-RADS 2: Benign finding RECOMMENDATION: Annual mammography CAD was utilized during interpretation. The patient will be sent a letter from the mammography department withtheir mammography results. Dictated By: Vidal Camilo Transcribed By: Vidal Middleton Transcribed On: 2023 8:35 AM Electronically signed by: Vidal Camilo 2023 Thank you for referring KATHLEEN EUGENE to [facility]. Legally authenticated by JONE MEZA 2023 08:35:30 us Delfin Robbins MD IMG BI PROCEDURES [...] documented as of this encounter Care Teams Chief Of Police Relationship Specialty Start Date End Date Marina Gan APRN [address] [place] [id number] PCP - General 07/30/20 documented as of this encounter
== END 2024-11-14 23:59 ==
LOC: LAB.DROPOF 11-17 08:41
PROVIDERS: PCP Nurse Practitioner Family; Visit Provider Nurse Practitioner Family
DX: Z00.00 Encounter for general adult medical examination without abnormal findings (principal); Z13.1 Encounter for screening for diabetes mellitus; I10 Essential (primary) hypertension; K58.0 Irritable bowel syndrome with diarrhea; E66.812 Obesity, class 2; K21.9 Gastro-esophageal reflux disease without esophagitis; E55.9 Vitamin D deficiency, unspecified; D64.9 Anemia, unspecified; E78.5 Hyperlipidemia, unspecified; E03.9 Hypothyroidism, unspecified; G47.33 Obstructive sleep apnea (adult) (pediatric)
CPT/HCPCS: 80053; 80061; 82306; 82607; 83036; 84439; 84443; 85025

== ENCOUNTER 2025-01-30 06:47 | Emergency (ER) | payer BC, SELFPAY ==
[2025-01-30 06:53] VITALS: BP 120/63; PULSE 58; RESP 20; TEMP 36.6; O2SAT 98; BMI 33.8
[2025-01-30 07:03] VITALS: BP 111/80; PULSE 63; O2SAT 97
--- NOTE | 2025-01-30 07:03 | HMH.EDGENADL ---
Discharge Plan Disposition Patient Disposition: Home, Self-Care Prescriptions Prescriptions: No Action topiramate [Topamax] 25 mg tablet 25 mg PO BID Qty: 60 2RF losartan 25 mg tablet 25 mg PO DAILY Qty: 90 3RF sertraline 25 mg tablet 25 mg PO QHS Qty: 90 3RF ferrous sulfate 325 mg (65 mg iron) tablet 325 mg PO DAILY Qty: 90 3RF levothyroxine [Euthyrox] 100 mcg tablet 100 mcg PO QAM Qty: 90 3RF cholecalciferol (vitamin D3) 1,250 mcg (50,000 unit) capsule 1,250 mcg PO WEEKLY Qty: 12 3RF Referrals Follow up/Referrals: Layla [place] APRN [Primary Care Provider, Family Practice] - See instructions Activity Restrictions/Add. Instructions Additional Instructions/Restrictions: Keep the wound clean by using gentle soap and water. Do not scrub the wound as this can pop the stitches loose. Pat to dry. Follow-up with your primary care doctor in 10 to 14 days to have the stitches removed. If you develop any new or worsening symptoms, such as signs of infection with increased redness, swelling, pus draining from the wound or fever, return to the emergency department for evaluation. Clinical Impressions Clinical Impression: Finger laceration Instructions Patient Instructions: DI for Skin Abscess Print Language Print Language: Malay Discharge ED Provider: Aman Sparrow Adult HPI General Chief complaint: Skin/Abscess/Foreign Body Stated complaint: laceration hand Time Seen by Provider: 01/30/25 06:57 Mode of Arrival: Ambulatory Source of Information: Patient Description of Symptoms (Recalled from ER Triage Doc. by RN): pt reports she was cutting frozen sausage this morning when the knife slipped and cut between her left index and middle finger. History of Present Illness HPI narrative: Jhoana Eugene is a 44-year-old female who presents to the emergency department with a laceration between her 2nd and 3rd digits in the webspace. Patient states that this morning, she was using a serrated blade and tried to separate the ulcer and excellently cut the space between her fingers. Bleeding is controlled at this time. She states her tetanus shot is not up-to-date. She denies any numbness, tingling or weakness. She has not taken anything for pain. Related Data Previous Rx's ?Medication ?Instructions ?Recorded ferrous sulfate 325 mg (65 mg 325 mg PO DAILY #90 tabs 03/07/24 iron) tablet levothyroxine 100 mcg tablet 100 mcg PO QAM #90 tabs 11/17/24 (Euthyrox) cholecalciferol (vitamin D3) 1,250 1,250 mcg PO WEEKLY #12 caps 11/23/24 mcg (50,000 unit) capsule losartan 25 mg tablet 25 mg PO DAILY #90 tabs 01/19/25 topiramate 25 mg tablet (Topamax) 25 mg PO BID #60 tabs 01/19/25 sertraline 25 mg tablet 25 mg PO QHS #90 tabs 01/20/25 Allergies Allergy/AdvReac Type Severity Reaction Status Date / Time gluten Allergy Severe swelling Verified 01/19/25 15:25 Penicillins (PENICILLINS) Allergy Unknown Unknown Verified 01/19/25 15:25 allergy reaction NOVACAINE Allergy Severe S-SWELLS-OR Uncoded 01/19/25 15:25 AL/THROAT From BACTRIM Allergy Intermediate I-ITCHING Uncoded 01/19/25 15:25 PFS PFS Disclaimer: The information contained in this section may have been updated after the patient was seen, as this information can be updated by other users. Medical History Encounter to establish care Encounter for hepatitis C screening test for low risk patient Screening for HIV (human immunodeficiency virus) Encounter for IUD removal Viral syndrome Exposure to COVID-19 virus Strain of lumbar region Acute whiplash injury Contact dermatitis Allergic reaction Acute upper respiratory infection Hypothyroid Mini stroke Hypertension Surgical History Hx of colonoscopy H/O: Family History Other Family history of TIAs Family history of diabetes mellitus type II Family history of hypertension Family history of stroke Social History Smoking Status: Never smoker alcohol intake: current alcohol intake frequency: holidays/special occasions only substance use type: denies use current occupational status: employed Travel in the last 8 weeks?: Inside the [place] caffeine: Yes Have you lived/traveled outside US in past 30 days?: No Contact w/someone who lives/traveled outside US past 30 days?: No Exposure to someone with infectious disease in past 14 days?: No Do you have a fever (greater than 100.4 F or 38 C)?: No Have you tested positive for COVID-19?: No Exposed to someone with COVID-19 in past 14 days?: No Do you have a sore throat?: No Do you have a cough?: No Do you have any weakness?: No Do you have any diarrhea?: No Are you experiencing any unusual bleeding?: No Do you have any muscle aches/pain?: No Do you have any abdominal pain?: No Are you experiencing loss of taste or smell?: No Other Medical History Have you received the Flu Vaccine for this season: No Have you received the Pneumonia Vaccine: No ROS Obtained: Yes Systems reviewed as appropriate & no additional complaints except as documented Physical Exam General General appearance: alert and in no apparent distress Head Head exam: atraumatic Eye Eye exam: Present normal appearance ENT ENT exam: Present normal external ear exam Neck Neck exam: Present full ROM Chest Chest inspection: Present symmetric chest wall rise Respiratory Respiratory exam: Present normal lung sounds bilaterally; Absent respiratory distress Cardiovascular Cardiovascular exam: Present regular rate and normal rhythm Abdominal Exam Abdominal exam: Present soft Extremities Exam Extremities exam: Present normal inspection Expanded Upper Extremity Exam Left: Hand L/R back image:  1. 3cm linear laceration Back Exam Back exam: Present normal inspection Neurological Exam Neurological exam: Present alert and oriented X3 Psychiatric Psychiatric exam: Present normal affect Skin Skin exam: Present warm and dry Medical Decision Making Medical Records Screening: Per USPSTF and CDC recommendations, given the prevalence of disease in our region, it is our hospital?s policy to screen for HIV and viral Hepatitis for all patients aged 18 and over and those with ongoing risk factors. Tad Inquiry Pt receiving controlled substance: No Vital Signs: 01/30/25 06:53 01/30/25 07:03 01/30/25 07:16 Temperature 97.8 F Temperature Source Oral Pulse Rate 63 62 Pulse Rate [Right] 58 L Respiratory Rate 20 Blood Pressure 111/80 119/76 Blood Pressure [Right Arm] 120/63 Blood Pressure Mean [Right Arm] 82 02 Sat by Pulse Oximetry 98 97 97 Oxygen Delivery Method Room Air Orders (Tests/Meds): ED MEDICATIONS Discontinued Medications Generic Name Dose Route Start Last Admin Trade Name Freq PRN Reason Stop Dose Admin Lidocaine HCl 20 ml 01/30/25 07:05 01/30/25 07:14 Lidocaine 1% 20ml Mdv IJ 01/30/25 07:06 20 ml ONCE ONE Administration Tetanus/Reduced Diphtheria/Acell Pertussis 0.5 ml 01/30/25 06:57 01/30/25 07:15 Tet/Diphth/Pert-Adult 0.5ml Syringe IM 01/30/25 06:58 0.5 ml .ONCE ONE Administration Medical Decision Narrative: Jhoana Eugene is a 44-year-old female who presents to the emergency department with a laceration between her 2nd and 3rd digits in the webspace. Patient states that this morning, she was using a serrated blade and tried to separate the ulcer and excellently cut the space between her fingers. Bleeding is controlled at this time. She states her tetanus shot is not up-to-date. She denies any numbness, tingling or weakness. She has not taken anything for pain. On arrival, patient is hemodynamically stable, in no acute distress, breathing comfortably on room air, afebrile. Physical exam, as stated above, revealed an overall well appearing female in no distress. She has an approximately 3 cm laceration in the webspace between the left 2nd and 3rd digits. No active bleeding. Flexion and extension function in all fingers intact. Less than 2-second capillary refill. No other injuries are noted. No active bleeding at this time. Will update patient's tetanus shot. Patient's wound irrigated thoroughly with sterile water and lidocaine injected locally to the area with adequate anesthesia. Patient's wound was repaired using 5-0 nylon sutures x7 after anesthetizing the area with injected lidocaine 1%. Patient tolerated this well. After completion of laceration repair, it is felt the patient is appropriate discharge at this time. Was instructed to keep the wound clean using gentle soap and water. Return precautions were given for any signs of infection. All questions were answered. She demonstrated understanding and was in agreement this plan. She was then discharged from the emergency department in stable condition. Procedures Laceration Laceration 1: Site: finger Side (If applicable): left Size (cm): 3 Description: linear Depth: simple, single layer Local Anesthetic: lidocaine 1% Amount of anesthesia used (mL): 4 Pre-repair: wound explored and irrigated extensively Skin layer closed with: nylon Size (cm): 5-0 Number of sutures: 7 Technique: simple, interrupted Critical Care Critical Care Time Critical Care Time: No
--- OUTSIDE RECORDS SUMMARY | 2025-01-30 07:05 | XMS_ITS | Encounter Summary ---
Author Organization [facility] Address [address] [place] [address] Care Team Providers Care Forestry Crew Chief Name Role Phone Marina Gan APRN Primary Care Provider [phone] Reason for Visit * Reason Comments Med Refill Encounter Details Date Type Department Care Team (Late st Contact Info) Description 12/19/2024 Refill [facility] [address] [place] [address] Marina Gan APRN [address] [place] [address] Essential (primary) hypertension Social History Tobacco Use Types Packs/Day Years Used Date Smoking Tobacco: Never Passive Smoke Exposure: Never Smokeless Tobacco: Never Alcohol Use Standard [...] place to sleep or slept in a fci (including now)? No 12/10/2023 Utilities Answer Date Recorded In the past 12 months has th e electric, gas, oil, or water company threatened to shut off services in your home? No 12/10/2023 PHQ-2A Answer Date Recorded Patient Health Questionnaire-2 Score 0 09/11/2022 Comments No Sex and Gender Information Value Date Recorded Sex Assigned at Not on file Legal Sex Female 6:23 PM EDT Gender Identity Not on file Sexual Orientation Not on file documented as of this encounter Miscellaneous Notes * Progress Notes - Sowmya Henry, PharmD - 12/24/2024 6:24 AM EDT 1 medication(s) has been approved per protocol. Appt requested to be scheduled by [facility]. Patient must schedule an appointment and be seen in clinic for additional refills. documented in this encounter Plan of Treatment Not on file documented as of this encounter Visit Diagnoses Diagnosis Essential (primary) hypertension Unspecified essential hypertension documented in this encounter Additional Health Concerns Assessment Noted Time A fall risk assessment has been complete d for the patient 06/20/2023 10:18 AM EDT A Body Mass Index follow-up plan has been documented for the patient 01/08/2024 3:32 PM EDT documented as of this encounter Care Teams Forestry Crew Chief Relationship Specialty Start Date End Date Marina Gan APRN [address] [place] [address] PCP - General 07/30/20 documented as of this encounter
--- OUTSIDE RECORDS SUMMARY | 2025-01-30 07:05 | XMS_ITS | Encounter Summary ---
Author Organization [facility] Address [address] [place] [address] Care Team Providers Care Transformation Manager Name Role Phone Marina Gan APRN Primary Care Provider [phone] Encounter Details Date Type Department Care Team ([facility] st Contact Info) Description 09/06/2022 Outside Procedure External Location [address] [place] [id number] Provider, [facility] [place] Social History Tobacco Use Types Packs/Day Years [...] PM EDT Narrative 09/06/2022 3:29 [place] [address] Name: KATHLEEN EUGENE Exam Date: 09/06/2022 : 1980 Age 42 Gender: F Physician: FRANCISCO MARAVILLA Facility: [facility] Facility HSV: Outpatient Exam: CT BRAIN W/O [...] IMPRESSION: No acute intracranial abnormality. Dictated By: Vidla Camilo Transcribed By: Vidal Middleton Transcribed On: 09/06/2022 3:18 PM Electronically signed by: Vidal Camilo 09/06/2022 Thank you for referring KATHLEEN EUGENE to [facility]. Legally authenticated by JONE MEZA 2022-09-06 15:18:04 Procedure Note Provider, Generic [place] - 09/06/2022 [place] [address] Name: KATHLEEN EUGENE Exam Date: 09/06/2022 : 1980 Age 42 Gender: F Physician: FRANCISCO MARAVILLA Facility: [facility] Facility HSV: Outpatient Exam: CT BRAIN W/O [...] Thank you for referring NIDA KATHLEEN to [facility]. Legally authenticated by JONE MEZA 2022-09-06 15:18:04 Generic [place] Provider IMG CT PROCEDURES Fi nal Result documented in this encounter Visit Diagnoses Not on filedocumented in this encounter Additional Health Concerns Assessment Noted Time A fall risk assessment has been complete d for the patient 03/14/2021 7:50 AM EST A Body Mass Index follow-up plan has been documented for the patient 07/31/2022 12:34 PM EDT documented as of this encounter Care Teams Transformation Manager Relationship Specialty Start Date End Date Marina Gan APRN [address] [place] [address] PCP - General 07/30/20 documented as of this encounter
--- OUTSIDE RECORDS SUMMARY | 2025-01-30 07:05 | XMS_ITS | Encounter Summary ---
Author Organization [facility] Address [address] [place] [address] Care Team Providers Care Stonemason Apprentice Name Role Phone Jean Carlos Schuster APRN Primary Care Provider [phone] Encounter Details Date Type Department Care Team (Late st Contact Info) Description 09/18/2022 Outside Procedure External Location [address] [place] [address] Jean Carlos Schuster APRN [address] [place] [address] Social History Tobacco Use Types [...] PM EDT Narrative 09/20/2022 9:36 AM EDT [facility] [address] [place] [address] Name: KATHLEEN EUGENE Exam Date: 09/18/2022 : 1980 Age 42 Gender: F Physician: JEAN CARLOS SCHUSTER Facility: [facility] Facility HSV: Outpatient Exam: ECHO [...] There is no aortic stenosis. AV peak [id number]/sec. There is no aortic regurgitation. Tricuspid valve: [...] 30.1mL ELVIN: 16.2mL/mA (16-28ml/m2) Legally authenticated by NIDA Hernandez 2022-09-20 09:24:34 Caleb Eugene MD Dictated By: CALEB EUGENE Transcribed By: Transcribed On: 09/20/2022 9:24 AM Electronically signed by: CALEB EUGENE 09/20/2022 Thank you for referring NIDAKATHLEEN to [facility]. Legally authenticated by NIDA Hernandez 2022-09-20 09:24:34 Procedure Note Provider, Generic [place] - 09/20/2022 [place] [address] Name: KATHLEEN EUGENE Exam Date: 09/18/2022 : 1980 Age 42 Gender: F Physician: JEAN CARLOS SCHUSTER Facility: [facility] Facility HSV: Outpatient Exam: ECHO [...] There is no aortic stenosis. AV peak [id number]/sec. There is no aortic regurgitation. Tricuspid valve: [...] 30.1mL ELVIN: 16.2mL/mA (16-28ml/m2) Legally authenticated by NIDA Hernandez 2022-09-20 09:24:34 Caleb Eugene MD Dictated By: CALEB EUGENE Transcribed By: Transcribed On: 09/20/2022 9:24 AM Electronically signed by: CALEB EUGENE 09/20/2022 Thank you for referring KATHLEEN EUGENE to [facility]. Legally authenticated by NIDA Hernandez 2022-09-20 09:24:34 Jean Carlos Schuster APRN [...] documented as of this encounter Care Teams Stonemason Apprentice Relationship Specialty Start Date End Date Jean Carlos Schuster APRN [address] [place] [id number] PCP - General 07/30/20 documented as of this encounter
--- OUTSIDE RECORDS SUMMARY | 2025-01-30 07:05 | XMS_ITS | Encounter Summary ---
Author Organization [facility] Address [address] [place] [address] Care Team Providers Care Senior Mechanical Designer Name Role Phone Marina Gan APRN Primary Care Provider [phone] Encounter Details Date Type Department Care Team (Late st Contact Info) Description 2023 Outside Procedure External Location [address] [place] [address] Delfin Robbins MD [address] [place] [address] Social History Tobacco Use Types [...] EDT Narrative 2023 8:46 AM EDT [address] [address] Name: KATHLEEN EUGENE Exam Date: 2023 : 1980 Age 42 years Gender: F Physician: DELFIN ROBBINS Facility: [facility] Facility HSV: Outpatient Exam: ABE DIAG MAMMO [...] Thank you for referring KATHLEEN EUGENE to [facility]. Legally authenticated by JONE MEZA 2023 08:35:30 Procedure Note Provider, Generic [place] - [address] [address] Name: KATHLEEN EUGENE Exam Date: 2023 : 1980 Age 42 years Gender: F Physician: DELFIN ROBBINS Facility: [facility] Facility HSV: Outpatient Exam: ABE DIAG MAMMO [...] Thank you for referring KATHLEEN EUGENE to [facility]. Legally authenticated by JONE MEZA 2023 08:35:30 [...] documented as of this encounter Care Teams Senior Mechanical Designer Relationship Specialty Start Date End Date Marina Gan APRN [address] [place] [address] PCP - General 07/30/20 documented as of this encounter
--- OUTSIDE RECORDS SUMMARY | 2025-01-30 07:05 | XMS_ITS | Clinical Summary ---
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
--- OUTSIDE RECORDS SUMMARY | 2025-01-30 07:05 | XMS_ITS | Clinical Summary ---
Author Organization [facility] Address [address] [place] [address] Care Team Providers Care Reconciliation Specialist Name Role Phone Marina Gan APRN Primary Care Provider [phone] Allergies Active Allergy Reactions Criticality Noted Date [...] tabletIndication s:Essential (primary) hypertension Take 1 tablet by mouth once daily 90 tablet 5 Active Active Problems Problem Noted Date Diagnosed Date Menopausal symptoms 05/08/2019 Anxiety with depression 05/08/2019 Hypothyroidism (acquired) 08/19/2018 Elevated BP without diagnosis of hypertension Encounters Date Type Department Care Team Description 12/19/2024 [facility] Medicine [address] [place] [address] Marina Gan APRN Essential (primary) hypertension from Last 3 Months Immunizations Immunization Administration Dates Next Due Hep [...] place to sleep or slept in a long-term (including now)? No 12/10/2023 Utilities Answer Date Recorded In the past 12 months has th e [employer], gas, oil, or water company threatened to [...] C Screening 1978 [facility]-Infant/Child/Adol SDOH Screenings 1978 [facility]-PUTDE-85 Vaccine (#1) 08/02/1983 [facility]- SDOH Screenings 1996 [facility]-Adult SDOH Screenings 1996 [facility]-Hepatitis B Vaccines (1 of 3 - 19+ 3-dose series) 1997 CT Colonography 08/02/2023 Colonoscopy 08/02/2023 FIT-DNA 08/02/2023 FIT 08/02/2023 FOBT 08/02/2023 Sigmoidoscopy 08/02/2023 [facility]-Colorectal Cancer Screening 08/02/2023 [facility]-DTaP,Tdap,and Td Vaccines (2 - Td or Tdap) 01/20/2024 01/19/2014 [facility]-Pap Smear 07/27/2024 07/27/2021, 03/2016, 04/28/2015 [facility]-Influenza Vaccine (#1) 2024 [facility]-Depression Screening 12/09/2024 12/10/2023 [facility]-Cervical Cancer Screening 07/27/2026 [facility]-HPV/Cotest 07/27/2026 07/27/2021, 03/2016, 04/28/2015 [facility]-Zoster Vaccines (1 of 2) 2028 [...] 11:58 AM EDT) Case Report Cytology Case: [id number] Authorizing Provider: Delfin Robbins MD Collected: 07/27/2021 1158 Ordering Location: Obstetrics & Gynecology Received: 07/28/2021 0837 First Screen: CARLOS Hatch Specimen: ThinPrep Pap Test, Liquid-Based Cervical/Vaginal, CERVICAL/VAGINAL 08/02/2021 7:17 AM EDT [facility] Interpretation NEGATIVE FOR INTRAEPITHELIAL LESION OR MALIGNANCY 08/02/2021 7:17 AM EDT [facility] at 0717 EDT Other Findings Shift in [place]cca suggestive of bacterial vaginosis. 08/02/2021 7:17 AM EDT [facility] Specimen Adequacy Satisfactory for evaluation; endocervical/españa sformation zone component absent/insufficie nt. Slide scanned and imaged by ThinPrep Imaging System with manual review of all selected win. 08/02/2021 7:17 AM EDT [facility] Cervical cytology is a screening [...] results is suggested (please call Microbiology at [phone] for results). 08/02/2021 7:17 AM EDT [facility] Menstrual Status Cyclic 08/03/19 7:17 AM EDT [facility] Contraceptive History Intrauterine device 08/02/2021 7:17 AM EDT [facility] Screening Type Routine Screen 2021 7:17 AM EDT [facility] High Risk? No 08/02/2021 7:17 AM EDT [facility] HPV Testing Requested? Request HPV Testing if ASCUS (Women 25 Years or Older) 08/02/2021 7:17 AM EDT [facility] Previous Cancer History No 08/02/2021 7:17 AM EDT [facility] Clinical Information Z01.419 - Encounter for annual routine gynecological examination [ICD-10-CM] 08/02/2021 7:17 AM EDT [facility] Last Menstrual Period 07/17/21 08/02/2021 7:17 AM EDT [facility] Swab Vaginal and cervical cytologic material / Unknown Non-blood Collection / Unknown 07/27/2021 11:58 AM EDT 07/28/2021 8:37 AM EDT us Delfin Robbins MD LAB CYTOLOGY ORDERABLES Final R [facility] [address] [place] [address] from Last 3 Months or Most Recently Relevant to Health Maintenance Insurance [employer] Care Teams Reconciliation Specialist Relationship Specialty Start Date End Date Marina Gan APRN [facility] [place] [address] PCP - General 07/30/20
--- OUTSIDE RECORDS SUMMARY | 2025-01-30 07:05 | XMS_ITS | Encounter Summary ---
Author Organization Healthcare Address [address] [place] [address] Care Team Providers Care Chrome Cleaner Name Role Phone Marina Gan APRN Primary Care Provider [phone] Encounter Details Date Type Department Care Team (Late st Contact Info) Description 07/02/2023 Outside Procedure External Location [address] [place] [address] Delfin Robbins MD [address] [place] [address] Social History Tobacco Use Types [...] PM EDT Narrative 07/04/2023 3:49 [place] [address] Name: KATHLEEN EUGENE Exam Date: 07/02/2023 : 1980 Age 42 years Gender: F Physician: DELFIN ROBBINS Facility: [facility] Facility HSV: Outpatient Exam: ABE SCRN MAMMO [...] Thank you for referring KATHLEEN EUGENE to [facility]. Legally authenticated by JONE MEZA 2023-07-04 15:23:17 Procedure Note Provider, Generic [place] - 07/04/[address] [address] Name: KATHLEEN EUGENE Exam Date: 07/02/2023 : 1980 Age 42 years Gender: F Physician: DELFIN ROBBINS Facility: [facility] Facility HSV: Outpatient Exam: ABE SCRN MAMMO [...] Thank you for referring KATHLEEN EUGENE to [facility]. Legally authenticated by JONE MEZA 2023-07-04 15:23:17 [...] documented as of this encounter Care Teams Chrome Cleaner Relationship Specialty Start Date End Date Marina Gan APRN [address] [place] [address] PCP - General 07/30/20 documented as of this encounter
--- OUTSIDE RECORDS SUMMARY | 2025-01-30 07:05 | XMS_ITS | Encounter Summary ---
Author Organization [facility] Address [address] [place] [address] Care Team Providers Care It Infrastructure Engineer Name Role Phone Marina Gan APRN Primary Care Provider [phone] Encounter Details Date Type Department Care Team ([facility] st Contact Info) Description 09/06/2022 Outside Procedure External Location [address] [place] [id number] Provider, [place] Social History Tobacco Use Types Packs/Day Years [...] 3:09 PM EDT) Anatomical Region Laterality Modality [place] [facility] [place] Computed Tomogr aphy 09/06/2022 3:09 PM EDT Narrative 09/06/2022 3:51 PM EDT [address] [place] [address] Name: KATHLEEN EUGENE Exam Date: 09/06/2022 : [...] Thank you for referring KATHLEEN EUGENE to [facility]. Legally authenticated by JONE MEZA 2022-09-06 15:39:14 Procedure Note Provider, Generic [place] - 09/06/2022 [facility] [address] [place] [address] Name: KATHLEEN EUGENE Exam Date: 09/06/2022 : [...] Thank you for referring KATHLEEN EUGENE to [facility]. Legally authenticated by JONE MEZA 2022-09-06 15:39:14 us Generic [place] Provider IMG CT PROCEDURES Fi nal Result documented in this encounter Visit Diagnoses Not on filedocumented in this encounter Additional Health Concerns Assessment Noted Time A fall risk assessment has been complete d for the patient 03/14/2021 7:50 AM EST A Body Mass Index follow-up plan has been documented for the patient 07/31/2022 12:34 PM EDT documented as of this encounter Care Teams It Infrastructure Engineer Relationship Specialty Start Date End Date Marina Gan APRN [address] [place] [address] PCP - General 07/30/20 documented as of this encounter
[2025-01-30] MEDS: LIDOCAINE 1% 20ML MDV 20 ML IJ (07:14)
[2025-01-30] MEDS: TET/DIPHTH/PERT-ADULT 0.5ML SYRINGE 0.5 ML IM (07:15)
[2025-01-30 07:16] VITALS: BP 119/76; PULSE 62; O2SAT 97
--- NOTE | 2025-01-30 07:22 | PC.NURSE ---
Kyara SANCHEZ at bedside performing lac repair
[2025-01-30 07:43] VITALS: BP 119/76; PULSE 61; RESP 18; TEMP 36.6; O2SAT 96
== END 2025-01-30 07:54 | disposition home or self-care (01) ==
PROVIDERS: Emergency Provider Student in an Organized Health Care Education/Training Program; PCP Nurse Practitioner Family
DX: S61.412A Laceration without foreign body of left hand, initial encounter (principal); W44 Foreign body entering into or through a natural orifice
CPT/HCPCS: 12001; 90471; 90715; 99284

== ENCOUNTER 2025-02-09 10:00 | Outpatient (CLI) | payer BC, SELFPAY ==
[2025-02-09 14:04] LABS: Hematocrit 39.5 % (37.0-47.0); Hemoglobin 13.1 g/dL (12.2-16.2); Immature Granulocytes % 0.4 %; Mean Corpuscular HGB Conc 33.2 g/dL (31.8-35.4); Mean Corpuscular Hemoglobin 31.8 pg (27.0-31.2); Mean Corpuscular Volume 95.9 fl (81-99); Nucleated Red Blood Cells % 0 %; Platelet Count 173 K/mm3 (142-424); Red Blood Count 4.12 M/mm3 (4.20-5.40); Red Cell Distribution Width-SD 41.7 fL; White Blood Count 5.7 K/mm3 (4.8-10.8)
[2025-02-09 14:48] LABS: 25-OH Vitamin D, Total 81.9 ng/mL (30-100)
[2025-02-09 15:46] LABS: Thyroid Stimulating Hormone 1.57 uIU/mL (0.465-4.68)
[2025-02-09 15:48] LABS: Free T4 (Free Thyroxine) 1.08 ng/dl (0.78-2.19)
[2025-02-10 14:23] LABS: Cortisol,AM 11.7 ug/dL (6.2-19.4)
== END 2025-02-09 23:59 | disposition home or self-care (01) ==
LOC: LAB.DROPOF 02-10 10:00
PROVIDERS: PCP Nurse Practitioner Family; Visit Provider Nurse Practitioner Family
DX: G47.33 Obstructive sleep apnea (adult) (pediatric) (principal); E66.812 Obesity, class 2; E03.9 Hypothyroidism, unspecified; R35.0 Frequency of micturition; E55.9 Vitamin D deficiency, unspecified; D64.9 Anemia, unspecified
CPT/HCPCS: 82306; 82533; 84439; 84443; 85025